=== PATIENT | female | born 1965 | race Caucasian/White ===

== ENCOUNTER → 2019-12-15 08:13 | Outpatient (CLI) | payer OTHER, SELFPAY ==
--- NOTE | ~2019-12-15 | MMUS_ITS ---
EXAMINATION: MM diag cesar implant BI w nani, US breast RT limited HISTORY: Palpable right axillary lump with pain TECHNIQUE: Additional 3-D tomosynthesis images of the breasts were performed and synthetic 2-D images were generated. CAD analysis was submitted and interpreted. High resolution right breast ultrasound was performed. COMPARISON: Comparison to multiple prior studies sequentially, with oldest reviewed study dated 06/2015. BREAST PARENCHYMAL COMPOSITION: Breast composed of scattered areas of fibroglandular density FINDINGS: MAMMOGRAPHIC FINDINGS: There are bilateral subglandular saline implants. There are no new masses, calcifications or architec tural distortion in either breast to suggest malignancy. ULTRASOUND: Right breast ultrasound: There are multiple cysts of the right breast including 5 mm cyst at 10:00, 4 cm from the nipple and a 1.5 cm cyst at 11:00, 10 cm from the nipple there is a small amount of cyst. Pericapsular fluid is n oted, likely of no clinical significance. IMPRESSION: 1. No evidence for malignancy in either breast. Benign findings. 2. Routine yearly screening mammogram and regular clinical breast examination are recommended. BI-RADS Category 2: Benign finding(s). Reviewed, dictated and finalized at location A. IMPRESSION: 1. No evidence for malignancy in either breast. Benign findings. 2. Routine yearly screening mammogram and regular clinical breast examination a re recommended. BI-RADS Category 2: Benign finding(s).
== END ==
PROVIDERS: Visit Provider Advanced Practice Midwife
DX: N63.10 Unspecified lump in the right breast, unspecified quadrant (principal)
CPT/HCPCS: 76642; 77062; 77066; G0279

== ENCOUNTER → 2020-09-04 09:57 | Outpatient (CLI) | payer OTHER, SELFPAY ==
--- NOTE | ~2020-09-04 | US_ITS ---
US axilla RT DATE: 09/04/2020 10:15 INDICATION: Right axillary lump TECHNIQUE: High-resolution ultrasound imaging and color flow imaging of the right axillary soft tissu es COMPARISON: 08/09/2018 right axilla FINDINGS: No suspicious mass or shadowing is detected. IMPRESSION: BI-RADS Category 1: Negative Reviewed, dictated and finalized at Location A. Reviewed, dictated and finalized at location A.
== END ==
PROVIDERS: Visit Provider Nurse Practitioner Family
DX: R59.1 Generalized enlarged lymph nodes (principal)
CPT/HCPCS: 76882

== ENCOUNTER 2022-11-27 07:19 | Outpatient (CLI) | payer OTHER, SELFPAY ==
--- NOTE | ~2022-11-27 | MR_ITS ---
EXAMINATION: MR brain/brain stem wo con DATE: 11/27/2022 08:16 INDICATION: Phantom smells. Frequently smells smoke. TECHNIQUE: Magnetic resonance imaging (MRI) of the brain and brainstem was performed without intraven ous contrast. COMPARISON: None. FINDINGS: There is a focus of increased T2-weighted signal intensity in the left cerebral deep white matter, which is normal as an isolated finding. There is no intracranial hemorrhage, acute infarction , or abnormal intracranial mass lesion. The ventricles are normal in size. There is a mucous retentio n cyst in right maxillary sinus. The orbits are normal. The mastoid air cells are normal. IMPRESSION: 1. Normal brain. Reviewed, dictated and finalized at location A. IMPRESSION: 1. Normal brain.
== END 2022-11-27 07:20 | disposition home or self-care (01) ==
PROVIDERS: PCP Family Medicine; Visit Provider Nurse Practitioner Family
DX: R43.9 Unspecified disturbances of smell and taste (principal)
CPT/HCPCS: 70551

== ENCOUNTER → 2022-12-25 12:03 | Outpatient (CLI) | payer OTHER, SELFPAY ==
--- NOTE | ~2022-12-25 | MM_ITS ---
EXAMINATION: MM scrn cesar implant BI w nani HISTORY: Screening mammogram TECHNIQUE: Craniocaudal and mediolateral oblique 3-D tomosynthesis images with implant displacement a nd synthetic 2-D images were generated. Craniocaudal and mediolateral oblique views of the breasts wi thout implant displacement were obtained using full field digital mammography. CAD analysis was submi tted and interpreted. COMPARISON: 12/15/2019 bilateral diagnostic implant mammogram and limited right breast ultrasound exam ination 08/09/2018 bilateral implant diagnostic mammogram BREAST PARENCHYMAL COMPOSITION: The breasts are heterogeneously dense, which may obscure small masses . FINDINGS: Status post bilateral augmentation mammoplasty. There is no evidence of suspicious mass, ca lcification, or architectural distortion to suggest malignancy in either breast. There has been no mtz spicious interval change. IMPRESSION: 1. No mammographic evidence of malignancy. 2. Recommend routine screening mammography in one year. BI-RADS Category 1: Negative Reviewed, dictated and finalized at location A.
== END ==
PROVIDERS: PCP Nurse Practitioner Family; Visit Provider Obstetrics & Gynecology
DX: Z12.31 Encounter for screening mammogram for malignant neoplasm of breast (principal)
CPT/HCPCS: 77063; 77067

== ENCOUNTER 2024-11-04 00:45 | Day surgery (SDC) | payer OTHER, SELFPAY ==
[2024-10-20 15:36] VITALS: BMI 23.4
--- OUTSIDE RECORDS SUMMARY | 2024-11-04 00:49 | XMS_ITS | Data Portability ---
Author Organization [employer] [facility] in Office Address [address] [place] [address] Assessment Encounter Date Assessment Date Assessment LastModified by Organization Details LastModified Time 02/27/2024 02/27/2024 I spent 45 minutes of tfyx-ko-ccjb counselling and care coordination time with the patient. This includes reviewing medical records (medical, surgical, family and social history); updating medication and allergy information in the electronic health record; and ordering labs, medications, and education materials to continue patient care. Not available 02/27/2024 12:55:09 04/23/2024 04/23/2024 I spent over 30 minutes of hhnl-ph-mcpa counselling and care coordination time with the patient. This includes reviewing medical records (medical, surgical, family and social history); updating medication and allergy information in the electronic health record; and ordering labs, medications, and education materials to continue patient care. Not available 04/23/2024 12:40:49 05/28/2024 05/28/2024 I spent over 22 minutes of tphu-tu-gugo counselling and care coordination time with the patient. This includes reviewing medical records (medical, surgical, family and social history); updating medication and allergy information in the electronic health record; and ordering labs, medications, and education materials to continue patient care. Not available 05/28/2024 13:27:57 08/28/2024 08/28/2024 I spent 21 minutes of wtzz-yl-laim counselling and care coordination time with the patient. This includes reviewing medical records (medical, surgical, family and social history); updating medication and allergy information in the electronic health record; and ordering labs, medications, and education materials to continue patient care. [email or web address] Not available 08/28/2024 13:29:54 09/25/2024 09/25/2024 I spent 19 minutes of jwei-bh-vdes counselling and care coordination time with the patient. This includes reviewing medical records (medical, surgical, family and social history); updating medication and allergy information in the electronic health record; and ordering labs, medications, and education materials to continue patient care. [email or web address] Not available 09/25/2024 11:30:44 Plan of Treatment Reminders Order Date Submit Date Provider Last Modified By Organization Details Last Modified Time Details Appointments [id number] 2024 06:30A Barron GUAN NP Not available Not available Not available Lab estradiol (E2), free, serum 2024 025 [facility], [address], [place], [address], 05/13/2024 21:08:13 HbA1c (hemoglob in A1c), blood 2024 025 [facility], [address], [place], [address], 05/13/2024 21:08:14 insulin, serum - fasting please 2024 025 [facility], [address], [place], [address], 05/13/2024 21:08:15 shbg (sex hormone-b inding globulin) , serum 2024 025 [facility], [address], [place], [address], 05/13/2024 21:08:22 testoster one, free, serum 2024 025 [facility], [address], [place], [address], 05/13/2024 21:08:18 testoster one, total, serum 2024 025 [facility], [address], [place], [address], 05/13/2024 21:08:16 CBC 2024 025 [facility], [address], [place], [address], 05/13/2024 21:08:11 CMP, serum or plasma 2024 025 [facility], [address], [place], [address], 05/13/2024 21:08:10 lipid panel, serum 2024 025 [facility], [address], [place], [address], 05/13/2024 21:08:12 vitamin D, 25-hydrox y, total, serum 2024 025 [facility], [address], [place], [address], 05/13/2024 21:08:17 vitamin B12, serum 2024 025 [facility], [address], [place], [address], 05/13/2024 21:08:20 ferritin, serum or plasma 2024 025 [facility], [address], [place], [address], 05/13/2024 21:08:21 unlisted lab - TSH w/reflex 2024 025 [facility], [address], [place], [address], 05/13/2024 21:08:19 Referral None recorded. Procedures None recorded. Surgeries None recorded. Imaging DEXA 2024 025 [email or web address], [address] [address], [place], [address], 10/23/2024 15:00:05 Medication Orders Divigel 1.25 mg/1.25 gram (0.1 %) transderm al gel packet 2024 [facility] [address] [place], [address], 09/25/2024 11:51:54 progester one micronize d 200 mg capsule 2024 025 [facility] [address] [place], [address], 09/25/2024 11:51:52 Bundle A: 0.25 mL/week - [facility] 2024 025 [facility] (Clinic Pay Unmonitored Fax), [address] [place] [address], [address], 09/25/2024 11:54:25 Estrace 0.01% (0.1 mg/gram) vaginal cream 2024 025 [facility] [address] [place], [address], 08/28/2024 13:45:56 Bundle A: 0.25 mL/week - [facility] 2024 025 [facility] (Clinic Pay Unmonitored Fax), [address] [place] [address], [address], 08/28/2024 13:50:11 ondansetr on 4 mg disintegr ating tablet 2024 025 [facility] [address] [place], [address], 08/28/2024 13:45:57 progester one micronize d 200 mg capsule 2024 025 [facility] [address] [place], [address], 05/28/2024 13:29:19 Divigel 1.25 mg/1.25 gram (0.1 %) transderm al gel packet 2024 025 [facility] [address] [place], [address], 05/28/2024 13:29:19 estradiol 1 mg/gram (0.1 %) transderm al gel packet 2024 025 [facility] [address] [place], [address], 05/28/2024 12:58:45 estradiol 1 mg/gram (0.1 %) transderm al gel packet [facility]23 [facility] [address] [place], [address], 05/28/2024 12:58:41 Estriol+ Face Cream ([facility]) 2023 024 [facility] *Telemedicine * [facility], [address] [place], [address], 02/27/2024 12:02:28 Patient TargetsNo targets recorded. Patient Instructions Encounter Date Encounter Id Patient Instructions Last Modified By Organization Details Last Modified Time 02/27/2024 [id number] [facility] - Estriol+ Face Cream Patient FAQ [email or web address] Not available 02/27/2024 12:01:26 Any requested follow-up visits are listed below in the Plan of Care section. Go directly to the [facility] production control scheduler at [email or web address] to book a time. [email or web address] Not available 02/26/2024 21:58:50 It was a pleasur e to meet with you today! We discussed your health concerns related to menopause, including the return of hot flashes and sleep issues. ------- Your Care Plan ------- Together, we decided that you would: - Increase your dose of estradiol gel from 0.75 milligrams to 1 gram. This medication is used to help manage your menopausal symptoms. Please warp picker your new prescription from the pharmacy. - Continue taking your current medications and supplements, including compounded testosterone, progesterone (200 milligrams daily), omegas, B12, vitamin D with K, and magnesium. - In two days, log into the [facility] website to look for your estriol face cream and an invitation to schedule an appointment with Lakshmi Pal, a nurse practitioner who can prescribe testosterone. - Keep an eye on your A1c and LDL cholesterol levels. We discussed rechecking these in a few months. - Consider contacting your insurance company to inquire about coverage for weight loss medication, given your pre-diabetic status. Please note that the estriol face cream is not covered by insurance. This cream is designed for use on thin areas of skin, such as around the eyes and on the neck. Be cautious when applying it to areas with sun damage, as it can darken sunspots. If you do not receive an invitation to schedule an appointment with Lakshmi Pal by the end of the week, please send me a note via our patient portal and I will have someone from our staff reach out to you. Please carefully review the care plan we have decided upon, specific information regarding your medication, and important details about your treatment detailed above. Thank you for trusting us with your care! Today we reviewed options for treating common symptoms of menopause. These options include hormonal medications, non hormonal medications, integrative therapies and lifestyle modifications. Menopause symptoms vary from woman to woman. Some women get no symptoms, but others have many. Intensity and duration also vary and can last on average 5-10 years. HRT may help with many menopausal symptoms. It is FDA approved for the treatment of hot flashes, vaginal symptoms, osteoporosis, and for those in early or premature menopause. HRT is associated with relief of symptoms and improvement in bone health. When started close to the age of menopause, HRT reduces cardiovascular risk and has potential benefits for cognitive health. Here are the latest recommendations from the Menopause Society: [email or web address] /patient-education/me nopause-topics/hormon e-therapy Hormone therapy most often involves the combination of estrogen and progestogen. As with any drug there are some potential risks associated with hormone therapy. There are concerns of associated health risks with HRT including risks related to breast cancer, uterine cancer, gallbladder disease, and dementia. Many of these concerns are related to older types of hormones that are no longer recommended today and some of these concerns differ depending on the component of hormones (i.e., estrogen vs progestogen) and the mode of delivery. Some studies have suggested that some types of HRT may increase the risk of heart attack, stroke, and blood clots. If you develop chest pain, difficulty breathing, or symptoms suggestive of a stroke please seek care immediately. Today we reviewed your personal history including specific risks and benefits of hormone therapy for you. Based on this shared decision making, we recommend HRT to you as a reasonable and helpful therapy. If you have additional questions related to health risks associated with HRT, please discuss with your clinician. Please know that HRT requires fine-tuning and an individualized approach. We ll plan to adjust your therapy if needed to address your symptoms. We will meet in 4-6 weeks to check in about your new regimen. Please reach out if you need to meet sooner. [email or web address] Not available 02/27/2024 12:41:34 04/23/2024 [id number] Joao Conklin w as nice to meet with you today. I placed your lab orders. Please remember to fast about 10 hours prior to completing them. Also, do not apply your testosterone for 3-4 hours prior to the lab draw. HOW TO LOCATE YOUR ORDERS IN YOUR PORTAL: Please note, lab orders are not available via a mobile device and can only be viewed via a desktop or laptop. You will be able to locate any lab orders from your [facility] clinician, by following the steps below: 1. Log into your [facility] portal via the following link: [email or web address] 2. Select My Health from the left-hand navigation menu 3. Select Health Reminders from the top menu bar 4. Here, you will be able to view all of your orders and the facilities to which they were sent All labs are sent to [facility] or your preferred facility, through their electronic system. If using [facility], then you may also go to any convenient [facility] location by searching their site ([email or web address] to find your nearest [facility] location. You do not need to bring a copy of the requisition but know that it is in your [facility] portal for reference. The lab will be able to locate your order using your name and date of , and we recommend bringing your insurance card and ID for verification and to avoid being charged usa-eh-vsgfjz rates. Schedule a followup visit through the [employer] production control scheduler at [email or web address] Not available 04/23/2024 12:44:11 Estradiol transd ermal gel (Divigel): Divigel should be applied once daily on the skin of either the right or left upper thigh (switch sides daily to avoid irritation). Spread the gel over an area the size of two palm prints. Use the full amount of each dose packet. After application, the gel should be allowed to dry before dressing. The application site should not be washed within 1 hour after applying Divigel. Use the gel at the same time each day. You can use it in the morning if daytime symptoms are most noticeable, or before bed if nighttime symptoms are most bothersome for you. Wash your hands with soap and water after applying the gel. Avoid allowing other people to get Divigel on their skin. If this happens, wash the area thoroughly with soap and water. Children should avoid coming into contact with skin areas where you have applied Divigel. Estrogen can cause premature puberty in a child who comes into contact with this medicine or with skin where Divigel was applied. Cover treated areas with clothing to protect others from coming into contact with the skin where you apply this medicine. Common side effects that usually go away after a few weeks or with a dosage adjustment: yellowish vaginal discharge, breakthrough vaginal bleeding or spotting, breast tenderness, or a little moodiness. Oral micronized progesterone (Prometrium) Continuous: -We prescribe progesterone to protect women with a uterus while taking estrogen. It may be prescribed for some individuals to help with sleep. -Remember to take this medication orally daily before bed, because it may make you drowsy. That is normal and common, and could bring the added benefit of better sleep. -Get it from your pharmacy. -Contraindications to this formulation: Peanut allergies as in peanut oil. -Concerning symptoms that would require immediate visit with PCP or urgent care: Severe mood changes. -Non-concerning side effects that are likely to resolve: cramping, bloating and mild moodiness. These are likely to ease within three months. Not available 04/23/2024 12:44:26 05/28/2024 [id number] Joao Zamorano - good to see you again. I have sent the new script for Estradiol to the pharmacy. Please let me know if you have any questions before we meet again. Schedule a followup visit through the [employer] production control scheduler at [email or web address] Not available 05/28/2024 13:29:49 Dietary recommendations to help lower cholesterol: -Try to limit red meat, butter, fried foods, cheese, and other foods that have a lot of saturated fat. -Try Green Tea Daily or a fresh slice of lemon in water -Eating more soluble fiber Soluble fiber is found in fruits, oats, barley, beans, and peas -Replacing meat with soy sometimes Soy-based products include tofu and tempeh. -Eggs are OK if you want to eat them, but don't overdo it. The news often has stories about the health benefits or risks of eggs. The truth is, eggs are a good source of protein and do not raise cholesterol much. Saturated fats (like in red meat, butter, and fried foods) affect cholesterol levels more than eggs do. -Foods rich in omega-3 fatty acids include oily fish, and olive and canola oil. These foods seem to raise good cholesterol and might lower certain types of bad cholesterol. If you want, it's fine to eat 1 to 2 servings of oily fish a week (such as salmon, gonzales, or tuna). -Nuts Some studies show that eating certain nuts, such as walnuts, almonds, and pistachios, can help lower cholesterol -Fiber-rich foods Fiber-rich foods, such as fruits, vegetables, beans, and oats, seem to lower cholesterol and are generally good for your health. Estradiol transdermal gel (Divigel): Divigel should be applied once daily on the skin of either the right or left upper thigh (switch sides daily to avoid irritation). Spread the gel over an area the size of two palm prints. Use the full amount of each dose packet. After application, the gel should be allowed to dry before dressing. The application site should not be washed within 1 hour after applying Divigel. Use the gel at the same time each day. You can use it in the morning if daytime symptoms are most noticeable, or before bed if nighttime symptoms are most bothersome for you. Wash your hands with soap and water after applying the gel. Avoid allowing other people to get Divigel on their skin. If this happens, wash the area thoroughly with soap and water. Children should avoid coming into contact with skin areas where you have applied Divigel. Estrogen can cause premature puberty in a child who comes into contact with this medicine or with skin where Divigel was applied. Cover treated areas with clothing to protect others from coming into contact with the skin where you apply this medicine. Common side effects that usually go away after a few weeks or with a dosage adjustment: yellowish vaginal discharge, breakthrough vaginal bleeding or spotting, breast tenderness, or a little moodiness. Oral micronized progesterone (Prometrium) Continuous: -We prescribe progesterone to protect women with a uterus while taking estrogen. It may be prescribed for some individuals to help with sleep. -Remember to take this medication orally daily before bed, because it may make you drowsy. That is normal and common, and could bring the added benefit of better sleep. -Get it from your pharmacy. -Contraindications to this formulation: Peanut allergies as in peanut oil. -Concerning symptoms that would require immediate visit with PCP or urgent care: Severe mood changes. -Non-concerning side effects that are likely to resolve: cramping, bloating and mild moodiness. These are likely to ease within three months. Not available 05/28/2024 13:30:30 08/28/2024 [id number] [facility] Semaglut tom Pricing Not available 08/28/2024 13:45:54 Any requested follow-up visits are listed below in the Plan of Care section. Go directly to the [employer] production control scheduler at [email or web address] to book a time. [email or web address] Not available 08/28/2024 10:30:16 It was great to see you today! As always, do not hesitate to reach out with any questions. We focused on these items today: 1. Weight 2. GSM 3. Screening for osteoporosis MEDICATION Please see changes to your medication plan below RESOURCES Here is some more information about what we discussed: It was a pleasure to meet with you today! We discussed your interest in GLP-1 microdosing, as well as general questions about your health and treatment options. Your Care Plan Together, we decided that you would: - Start GLP-1 microdosing with a semaglutide compound. The initial dose is 25 units once weekly, but you can start with a lower dose of 10-15 units if preferred. The medication will be sent from [facility] in [place], and you will receive an email from [employer] to verify your information and payment. - Be aware that the most common side effect of semaglutide is nausea. A prescription for Zofran will be sent to your pharmacy as a precaution. - Schedule a follow-up appointment in four weeks to assess your response to the GLP-1 microdosing. The appointment is scheduled for September 25 at 10:30 AM. - Undergo a DEXA scan. The order has been sent to [facility], and you will need to contact them to schedule the appointment. Please check with your insurance for coverage. - Start using Estrace vaginal cream in addition to your current estrogen gel. This will help nourish the vaginal tissue, support the microflora, and reduce urinary urgency and frequency. The prescription will be sent to your local pharmacy. Please carefully review the care plan we have agreed upon above, which includes specific information about your GLP-1 microdosing, DEXA scan, and estrogen therapy. Thank you for trusting us with your care! [facility] Compounded Semaglutide [email or web address] Here are the next steps regarding your [facility] prescription: The day after your visit you will receive an email from [employer] to purchase your medications. We recommend adding this email to your contact list to prevent it from being filtered by spam/junk filters. Please ensure you click the link in the email to confirm the products you would like. Once you have verified you would like to receive this product from that email and completed the purchase, your prescription will be processed. If you do not receive the email, you can purchase your [facility] medications in the [employer] production control scheduler at [email or web address] Once you login click on Custom RX in the left side panel, then select the items you wish to purchase. You will receive an email and text when your order ships. Please allow 5-7 business days from time of purchase to arrival of the medication. If you have any questions at any time, please reach out to us here at [facility], we are happy to help. Vaginal Estrogen Cream (Estrace vaginal cream): - This vaginal estrogen helps to restore vaginal PH and microflora, reduce dryness, and support healthy skin in and around the vagina. It may decrease irritation, pain with sex, bladder infections and symptoms of urinary urgency and frequency. - Insert 0.5 mg into the vagina and apply 0.5 mg to vulva every night at bedtime for 14 days, then twice weekly. - Get it from your pharmacy. [email or web address] Not available 08/28/2024 13:45:52 09/25/2024 [id number] [facility] Semaglut tom Pricing [email or web address] Not available 09/25/2024 11:51:48 Any requested follow-up visits are listed below in the Plan of Care section. Go directly to the [employer] production control scheduler at [email or web address] to book a time. To schedule or modify your visit, access the [employer] portal here: [email or web address] Not available 09/25/2024 11:46:28 It was great to see you again! As always, do not hesitate to reach out with any questions. We focused on these items today: 1. Menopausal symptom 2. Weight MEDICATION Please see changes to your medication plan below RESOURCES Here is some more information about what we discussed: Dear Lona, It was great to see you today! Below is a summary of the plan we decided upon together: Abnormal weight gain and semaglutide use - We decided to lower your semaglutide dose to 5 units weekly to see if this eases the diarrhea, nausea, and heartburn. - Keep ondansetron on hand but use it only if you feel truly queasy. - Track your bowel habits and weight so we can review any changes at your October follow-up. Hormone therapy - Refills for Divigel and progesterone are in; keep applying the gel daily and taking the capsule nightly. - Continue Estrace vaginal cream as previously directed to support vaginal tissue health. Osteoporosis prevention - Please call [facility] to set up your DEXA scan; bring any insurance questions to them first. - Weight-bearing exercise and good calcium/vitamin D intake remain wilkerson for bone strength. NAD injections - We will have an NAD option through the clinic soon; I will alert you when it is ready so everything stays in one place. - For now, keep your current NAD routine and do not mix it in the same syringe with semaglutide. If you have any questions or experience any new symptoms, please do not hesitate to reach out to our office. Sincerely, CAMERON GUAN NP [email or web address] Not available 09/25/2024 11:46:28 Reason for Referral None Reported. Results Created Date Observation Date Name Description Value Unit Range Abnormal Flag Note LastModifiedBy Organization Detail LastModifiedTime 04/30/1905/01/2024 COMP. METAB OLIC PANEL (14) glucose 76 mg/dL 70-99 normal Not Available [facility] [facility]) [address] [place], [address], 05/13/2024 21:08:10 04/30/19 25 05/01/2024 COMP. METAB OLIC PANEL (14) BUN 18 mg/dL 6-24 normal Not Available [facility] ([facility]) [address] [place], [address], 05/13/2024 21:08:10 04/30/19 25 05/01/2024 COMP. METAB OLIC PANEL (14) creatinine 0.84 mg/dL 0.57-1 .00 normal Not Available [facility] ([facility]) [address] [place], [address], 05/13/2024 21:08:10 04/30/19 25 05/01/2024 COMP. METAB OLIC PANEL (14) eGFR 82 mL/mi n/1.7 3 >59 normal Not Available [facility] ([facility]) [address] [facility] [place], [address], 05/13/2024 21:08:10 04/30/19 25 05/01/2024 COMP. METAB OLIC PANEL (14) BUN/creatini ne ratio 21 9-23 normal Not Available [facility] ([facility]) [address] [place], [address], 05/13/2024 21:08:10 04/30/19 25 05/01/2024 COMP. METAB OLIC PANEL (14) sodium 141 mmol/ L 134-14 4 normal Not Available [facility] ([facility]) [address] [place], [address], 05/13/2024 21:08:10 04/30/19 25 05/01/2024 COMP. METAB OLIC PANEL (14) potassium 4.6 mmol/ L 3.5-5. 2 normal Not Available [facility] ([facility]) [address] [place], [address], 05/13/2024 21:08:10 04/30/19 25 05/01/2024 COMP. METAB OLIC PANEL (14) chloride 106 mmol/ L 96-106 normal Not Available [facility] ([facility]) [address] [facility] [place], [address], 05/13/2024 21:08:10 04/30/19 25 05/01/2024 COMP. METAB OLIC PANEL (14) carbon dioxide, total 22 mmol/ L 20-29 normal Not Available [facility] ([facility]) [address] [facility] [place], [address], 05/13/2024 21:08:10 04/30/19 25 05/01/2024 COMP. METAB OLIC PANEL (14) calcium 9.7 mg/dL 8.7-10 .2 normal Not Available [facility] ([facility]) [address] [facility] [place], [address], 05/13/2024 21:08:10 04/30/19 25 05/01/2024 COMP. METAB OLIC PANEL (14) protein, total 6.5 g/dL 6.0-8. 5 normal Not Available [facility] ([facility]) [address] [place], [address], 05/13/2024 21:08:10 04/30/19 25 05/01/2024 COMP. METAB OLIC PANEL (14) albumin 4.3 g/dL 3.8-4. 9 normal Not Available [facility] ([facility]) [address] [place], [address], 05/13/2024 21:08:10 04/30/19 25 05/01/2024 COMP. METAB OLIC PANEL (14) globulin, total 2.2 g/dL 1.5-4. 5 Not Available [facility] ([facility]) [address] [facility] [place], [address], 05/13/2024 21:08:10 04/30/19 25 05/01/2024 COMP. METAB OLIC PANEL (14) bilirubin, total 0.6 mg/dL 0.0-1. 2 normal Not Available [facility] ([facility]) [address] [facility] [place], [address], 05/13/2024 21:08:10 04/30/19 25 05/01/2024 COMP. METAB OLIC PANEL (14) alkaline phosphatase 49 IU/L 44-121 normal Not Available [facility] ([facility]) [address] [facility] [place], [address], 05/13/2024 21:08:10 04/30/19 25 05/01/2024 COMP. METAB OLIC PANEL (14) AST (SGOT) 23 IU/L 0-40 normal Not Available [facility] ([facility]) [address] [place], [address], 05/13/2024 21:08:10 04/30/19 25 05/01/2024 COMP. METAB OLIC PANEL (14) ALT (SGPT) 13 IU/L 0-32 normal Not Available [facility] ([facility]) [address] [facility], [place], [address], 05/13/2024 21:08:10 04/30/19 25 04/30/2024 CBC, PLATE LET, NO DIFFE RENTI AL WBC 5.2 x10e3 /uL 3.4-10 .8 normal Not Available [facility] ([facility]) [address] [facility], [place], [address], 05/13/2024 21:08:11 04/30/1904/30/2024 CBC, PLATE LET, NO DIFFE RENTI AL RBC 4.51 x10e6 /uL 3.77-5 .28 normal Not Available [facility] ([facility]) [address] [facility], [place], [address], 05/13/2024 21:08:11 04/30/1904/30/2024 CBC, PLATE LET, NO DIFFE RENTI AL hemoglobin 13.5 g/dL 11.1-1 5.9 normal Not Available [facility] ([facility]) [address] [facility], [place], [address], 05/13/2024 21:08:11 04/30/1904/30/2024 CBC, PLATE LET, NO DIFFE RENTI AL hematocrit 42.4 % 34.0-4 6.6 normal Not Available [facility] ([facility]) [address] [facility], [place], [address], 05/13/2024 21:08:11 04/30/1904/30/2024 CBC, PLATE LET, NO DIFFE RENTI AL MCV 94 fL 79-97 normal Not Available [facility] ([facility]) [address] [facility], [place], [address], 05/13/2024 21:08:11 04/30/192025 CBC, PLATE LET, NO DIFFE RENTI AL MCH 29.9 pg 26.6-3 3.0 normal Not Available [facility] ([facility]) [address] [facility], [place], [address], 05/13/2024 21:08:11 04/30/19 25 04/30/2024 CBC, PLATE LET, NO DIFFE RENTI AL MCHC 31.8 g/dL 31.5-3 5.7 normal Not Available [facility] ([facility]) [address] [place], [address], 05/13/2024 21:08:11 04/30/1904/30/2024 CBC, PLATE LET, NO DIFFE RENTI AL RDW 11.8 % 11.7-1 5.4 Not Available [facility] ([facility]) [address] [place], [address], 05/13/2024 21:08:11 04/30/19 25 04/30/2024 CBC, PLATE LET, NO DIFFE RENTI AL platelets 231 x10e3 /uL 150-45 0 normal Not Available [facility] ([facility]) [address] [facility], [place], [address], 05/13/2024 21:08:11 04/30/19 25 04/30/2024 CBC, PLATE LET, NO DIFFE RENTI AL NRBC RADIATION THERAPY TECHNOLOGIST Not Available [facility] ([facility]) [address] [place], [address], 05/13/2024 21:08:11 04/30/19 25 05/01/2024 LIPID PANEL cholesterol, total 220 mg/dL 100-19 9 above high normal Not Available [facility] ([facility]) [address] [place], [address], 05/13/2024 21:08:12 04/30/19 25 05/01/2024 LIPID PANEL triglyceride s 58 mg/dL 0-149 normal Not Available [facility] ([facility]) [address] [facility], [place], [address], 05/13/2024 21:08:12 04/30/19 25 05/01/2024 LIPID PANEL HDL cholesterol 69 mg/dL >39 normal Not Available [facility] ([facility]) [address] [place], [address], 05/13/2024 21:08:12 04/30/19 25 05/01/2024 LIPID PANEL VLDL cholesterol mahesh 10 mg/dL 5-40 Not Available [facility] ([facility]) [address] [place], [address], 05/13/2024 21:08:12 04/30/1905/01/2024 LIPID PANEL LDL chol calc ([facility]) 141 mg/dL 0-99 above high normal Not Available [facility] ([facility]) [address] [facility], [place], [address], 05/13/2024 21:08:12 04/30/1905/01/2024 LIPID PANEL LDL calc comment: RADIATION THERAPY TECHNOLOGIST Not Available [facility] ([facility]) [address] [facility], [place], [address], 05/13/2024 21:08:12 04/30/19 25 05/12/2024 ESTRA DIOL, FREE SERUM estradiol, serum, MS 22 pg/mL This test was milvia peñaloza and its perfo rmanc e teresa cteri stics deter mined by [facility]. It has not been clear ed or appro rolan by the Food and Drug Admin istra tion. Refer ence Range : Adult Femal es Folli cular : 30 - 100 Lutea l: 70 - 300 Postm enopa usal: <15 Not Available [facility] [address] [place] [address], [address], 05/13/2024 21:08:13 04/30/19 25 05/13/2024 ESTRA DIOL, FREE SERUM free estradiol, percent 2.0 % This test was milvia peñaloza and its perfo rmanc e teresa cteri stics deter mined by [facility]. It has not been clear ed or appro rolan by the Food and Drug Admin istra tion. Refer ence Range : Adult Femal es: 1.6 - 3.6 Not Available [facility] [address] [place], [address], 05/13/2024 21:08:13 04/30/19 25 05/13/2024 ESTRA DIOL, FREE SERUM free estradiol, serum 0.44 pg/mL below low normal Refer ence Range : Adult Femal es: 0.6 - 7.1 Not Available [facility] [address] [place], [address], 05/13/2024 21:08:13 04/30/19 25 05/01/2024 HGB A1C WITH EAG ESTIM ATION hemoglobin A1C 5.6 % 4.8-5. 6 normal Predi abete s: 5.7 - 6.4 Diabe salomón: >6.4 Glyce sumeet contr ol for adult s with diabe salomón: <7.0 Not Available [facility] ([facility]) [address] [place], [address], 05/13/2024 21:08:14 04/30/19 25 05/01/2024 HGB A1C WITH EAG ESTIM ATION estim. avg glu (EAG) 114 mg/dL Not Available [facility] ([facility]) [address] [place], [address], 05/13/2024 21:08:14 04/30/19 25 05/07/2024 INSUL IN #9 insulin #9 1.5 uIU/m L 2298 Not Available [facility] [address] [place], [address], 05/13/2024 21:08:15 04/30/19 25 05/01/2024 TESTO STERO NE testosterone 195 NG/dL 4-50 above high normal Not Available [facility] ([facility]) [address] [facility], [place], [address], 05/13/2024 21:08:16 04/30/19 25 05/01/2024 VITAM IN D, 25-HY DROXY vitamin D, 25-hydroxy 58.8 NG/mL 30.0-1 00.0 Vitam in D defic iency has been defin ed by the Insti tute of Medic ine and an Endoc rine Socie ty pract ice guide line as a level of serum 25-OH vitam in D less than 20 ng/mL (1,2) . The Endoc rine Socie ty went on to furth er defin e vitam in D insuf ficie ncy as a level betwe en 21 and 29 ng/mL (2). 1. IOM (Inst itute of Medic ine). 2010. Sean ry refer ence natalia es for calci um and D. Paulino guillen [place]: The [facility] Press . 2. Ludin castellano MF, Chad ey [place], Esther off-F errar i MEI, et al. Evalu ation , treat ment, and preve ntion of vitam in D defic iency : an Endoc rine Socie ty clini mahesh pract ice guide line. JCEM. 2010; 96(7) :1911 -30. Not Available [facility] ([facility]) [address] [facility], [place], [address], 05/13/2024 21:08:17 04/30/19 25 05/03/2024 TESTO STERO NE, FREE, DIREC T free testosterone (direct) 1.3 pg/mL 0.0-4. 2 Not Available [facility] ([facility]) [address] [place], [address], 05/13/2024 21:08:18 04/30/19 25 05/01/2024 TSH W/REF JC TSH 2.510 uIU/m L 0.450- 4.500 normal Not Available [facility] ([facility]) [address] [facility], [place], [address], 05/13/2024 21:08:19 04/30/19 25 05/01/2024 VITAM IN B12 vitamin B12 664 pg/mL 232-12 45 normal Not Available [facility] ([facility]) [address] [facility], [place], [address], 05/13/2024 21:08:20 04/30/19 25 05/01/2024 APRIL TIN ferritin 43 NG/mL 15-150 normal Not Available [facility] ([facility]) [address] [facility], [place], [address], 05/13/2024 21:08:21 04/30/19 25 05/01/2024 SEX HORM RUBY NG GLOB, SERUM sex horm binding glob, serum 102.0 nmol/ L 17.3-1 25.0 Not Available [facility] ([facility]) [address] [facility], [place], [address], 05/13/2024 21:08:22 Result Notes None recorded. Problems Name Problem SNOMED Code Status Onset Date Resolution Date Notes Provider Name and Address Organization Details Recorded Time Menopausal symptom 13696395 Active 2023 [place] [address] [place], [address], [facility] 4 22:00:19 Fatigue 83076850 Active 2023 Violette [place] [address], [address], [facility] 4 22:00:19 Hyperlipide stanton 65682877 Active 2023 Violette [place] [address], [address], [facility] 4 11:42:33 Intrinsic aging of skin 139903715 Active 2023 [place] [address] [place], [address], [facility] 4 11:48:30 Abnormal weight gain 107124654 Active 2023 [place] [address] [place], [address], [facility] 5 22:16:44 Hyperglycem ia 42246534 Active 2023 [place] [address] [address] [place] [address], [facility] 4 12:54:34 Prediabetes 508263693 Active 2024 [place] [address] [address] [place] [address], [facility] 5 12:41:42 Reduced libido 2007253 Active 2024 [place] [address] [address] [place] [address], [facility] 5 12:42:44 Premature menopause 844463063 Active 2024 [place] [address] [place] [address], [facility] 5 13:22:18 Genitourina ry syndrome of menopause 6434368933805 9104 Active 2024 [place] [address] [place] [address], [facility] 5 13:26:24 Problem Notes None recorded. Procedures Surgical History Date Name Laterality Status Provider Name and Address Organization Details Recorded Time 3 Date of Last [place] [address] [address] [place] [id number], [facility] 02/27/2024 11:32:48 3 Date of Last [place] [address] [address] [facility] , [facility] 02/27/2024 11:32:48 Imaging Results None recorded. Procedure Notes None recorded. Medical Equipment None Reported. Allergies No known drug allergies Medications Name Sig Start Date Stop Date Status Note LastModified by Organization Details LastModified Time Estriol+ Face Cream ([facility]) Apply 1 gram (equival ent to 1 pump) directly to face and neck twice daily. 2023 active Not Available Not Available Not Avai lable Bundle A: 0.25 mL/week - [facility] Inject 25 units (0.25mg) subcutan eously once weekly. 2024 active Not Available Not Available Not Avai lable Bundle A: 0.25 mL/week - [facility] Inject 25 units (0.25mg) subcutan eously once weekly. 2024 active Not Available Not Available Not Avai lable cyclobenza iram 10 mg tablet 10 MG ORALLY THREE TIMES A DAY NEEDED FOR MUSCLE SPASM active Not Available Not Available No t Available azithromyc in 250 mg tablet TAKE 2 TABLETS BY MOUTH TODAY, THEN TAKE 1 TABLET DAILY FOR 4 DAYS DIRECTED active Not Available Not Available No t Available progestero ne micronized 200 mg capsule TAKE 1 CAPSULE BY MOUTH EVERY DAY FOR 90 DAYS active Not Available Not Available No t Available estradiol 0.01% (0.1 mg/gram) vaginal cream APPLY TO VULVA AND VAGINA 1 GM NIGHTLY FOR 2 WEEKS THEN REDUCE TO 2-3 TIMES PER WEEK THEREAFT ER. active Not Available Not Available No t Available ondansetro n 4 mg disintegra ting tablet Place 2 tablets twice a day by translin gual route for 15 days. 2024 active Not Available Not Available Not Avai lable estradiol 0.75 mg/1.25 gram (0.06%) transderma l gel Apply by transder mal route. 04/23 completed Not Available Not Available Not Available testostero ne active 5% 2 clicks bilat daily Not Available Not Available Not Available estradiol 1 mg/gram (0.1 %) transderma l gel packet Apply 1 packet every day by transder mal route for 30 days. 05/28 completed Not Available Not Available Not Available estradiol 0.75 mg/0.75 gram (0.1%) transderma l gel packet APPLY 1 PACKET BY TRANSDER MAL ROUTE EVERY DAY 04/23 completed Not Available Not Available Not Available estradiol 1.25 mg/1.25 gram (0.1 %) transderma l gel packet APPLY 1 PACKET EVERY DAY BY TRANSDER MAL ROUTE FOR 90 DAYS. active Not Available Not Available No t Available Vitals Date Recorded Body height Body mass index (BMI) Body weight Provider Name and Address Organization Details Last Updated DateTime 09/25/2024 162.56 cm 24 kg/m2 [address].[place] [address] [facility] [address] 09/25/2024 11:35:58 Date Recorded Body height Body mass index (BMI) Body weight Provider Name and Address Organization Details Last Updated DateTime 02/27/2024 162.56 cm 23.7 kg/m2 6[address].75 [place] [address] [facility] [address] 02/27/2024 11:40:23 Social History None recorded. Functional Status None recorded. Mental Status None recorded. Family History Relationship Description Onset Age of this Age Resolved Age Notes LastModified by Organization Details LastModified Time Father Malignant tumor of colon [email or web address] Not available 2023 22:03:01 Sister Type 1 diabetes mellitus [email or web address] Not available 2024 12:28:42 Medical History No medical history recorded. Gynecological History Statement/Question Response Date of Last Pap Smear 10/07/2022 Date of Last Colonoscopy Date of Last Mammogram 10/07/2022 Approximate Date of LMP 10/07/2006 Hormone Replacement Therapy Yes Obstetrics History GPAL:G 0 P 0 0 0 0 Past Encounters Encounter ID Performer Location Encounter Start Date Encounter Closed Date Diagnosis/Indication Diagnosis SNOMED-CT Code Diagnosis ICD10 Code Diagnosis Note [id number] Violette Marcelino NP Main Office [address] [place] [address] 02/27/2024 10:35:51 03/01/2024 10:58:03 Menopausal symptom 84776248 N95.1 - Patient experienci ng recurrence of hot flashes and insomnia.- Current estradiol gel dose is 0.75 mg, which appears insufficie nt.- Increased estradiol gel dose to 1 gram daily.- Educated patient on the potential for further dose adjustment s if symptoms persist.- Referred to Leona Pal NP, for management of testostero ne therapy due to current [employer] licensing issues.- Patient to follow up with [facility] clinician for [facility] rx in [place] for further hormone management and potential lab work.- Patient advised to monitor symptoms and report any changes. Fatigue 73398277 R53.83 - Chronic fatigue with a history of positive Yisel-Ba rr virus (EBV) indicating possible chronic fatigue syndrome.- No current exacerbati on noted.- Patient educated on the importance of maintainin g a balanced diet, regular exercise, and adequate sleep.- No new treatment initiated at this time. Intrinsic aging of skin 946164145 L90.8 - Patient interested in estriol face cream for skin aging.- Ordered estriol face cream from [place].- Educated patient on applicatio n: use on thin areas of skin such as around the eyes, neck, and back of hands.- Advised to avoid areas with sun damage to prevent darkening of sunspots.- Patient to log in to the [facility] website in 2 days to confirm order and provide shipping informatio n. Hyperlipidemia 50465921 E78.5 - Last LDL level was 151 mg/dL, which is elevated.- Patient advised to recheck lipid panel in a few months.- Educated on the impact of menopause on lipid levels and the importance of diet and exercise.- Discussed potential benefits of semaglutid e for metabolic health and A1c reduction. - Patient to contact insurance regarding coverage for weight loss medication s.- Will follow up with Lakshmi Pal for further management and potential initiation of semaglutid e therapy. Hyperglycemia 26258345 R 73.9 a1c elevated, new finding for patient. monitor. consider low dosing semaglutid e Abnormal weight gain 161 415228 R63.5 15 pound gain since age 52. is considerin g semaglutid e use [id number] Evelyne Pal NP Main Office [address] [place] [address] 04/23/2024 11:54:38 04/24/2024 11:17:00 Menopausal symptom 89308032 N95.1 Will continue on Estradiol 1mg gel packets & 200mg nightly prometrium - has enough prometrium but refills of estradiol sentLabs orderedRem maday to update mammoF/u scheduled to review lab results Adult heal th examination 181464601 Z00.00 Fasting labs ordered Prediabetes 763590146 R7 3.03 Await lab resultsMay consider microdosin g semaglutid e - see HPI Fatigue 87571059 R53.83 Labs ordered Reduced libido 9488440 R 68.82 Ran labs - currently on compounded testostero ne with outside provider [id number] Evelyne Pal NP Main Office [address] [place] [address] 05/28/2024 12:06:58 05/30/2024 04:27:40 Reduced libido 4257991 R68.82 Plans to continue testostero ne cream w/ outside provider Menopausal symptom 70660 002 N95.1 Discussed Estradiol results & pt's current symptoms - would like to try a slightly higher dose. Aware of risks/bene fits/use. RX sentF/u appt made Diet education 78033804 Z71.3 Briefly discussed cholestero l - thinks it may be genetic but will work on dietInfo given [id number] CAMERON GUAN NP Main Office [address] [place] [address] 08/28/2024 12:36:38 08/29/2024 05:41:59 Abnormal weight gain 856931604 R63.5 - Discussed semaglutid e compound (25 units once weekly), with option to use 10 20 units subcutaneo usly based on tolerance, for mild appetite suppressio n and metabolic support.- Prescribed ondansetro n for potential nausea, instructed that it is optional if no gastrointe stinal side effects occur.- Advised to follow up in 4 weeks to evaluate efficacy, dosage tolerance, and any side effects. Screening for osteoporosis 293063694 Z13.820 - Ordered DEXA scan at [facility].- Instructed patient to contact insurance provider for coverage details and schedule the imaging directly with [facility].- Will review results upon completion . Genitourin ivelisse syndrome of menopause 4535084474 5503029 N95.8 - Patient is currently receiving systemic estrogen via transderma l gel.- Prescribed local vaginal estrogen (Estrace vaginal cream) to support vaginal tissue health and reduce genitourin ivelisse symptoms.- Educated on applicatio n technique and potential benefits; prescripti on sent to local pharmacy. [id number] CAMERON GUAN NP Main Office [address] [place] [address] 09/25/2024 10:47:30 09/26/2024 04:31:29 Menopausal symptom 67755718 N95.1 - Refilled Divigel estradiol 1.25 mg packets daily and progestero ne 200 mg nightly; confirmed continued Estrace vaginal cream supply- Medication s supplement s: Divigel estradiol 1.25 mg transderma l daily; progestero ne 200 mg orally nightly; Estrace vaginal cream per current regimen Abnormal weight gain 161 309414 R63.5 - Diagnosis: Abnormal weight gain- Assessment : Semaglutid e micro-dose producing desired metabolic effect but causing gastrointe stinal side effects- Plan: Reviewed risks and benefits of therapy; advised reducing semaglutid e to 5 units weekly to improve tolerance- Medication s supplement s: Adjust semaglutid e to 5 units weekly; ondansetro n 4 mg ODT available prn nausea- Lifestyle measures: Maintain hydration and track bowel patterns and weight- Follow up: Telehealth visit scheduled 10 29 2024 at 08:15 AM Counseling 719231860 Z71 .9 - Diagnosis: Counseling , unspecifie d - Assessment : Discussion regarding NAD injection use and future availabili ty through clinic - Plan: Will notify patient when NAD formulatio n is available next month; instructed to use portal messaging for questions - Follow up: As needed via portal; reassess at next scheduled visit Health Concerns Section Related Observation LastModified by Organization Detai ls LastModified Time None Recorded Concern Status LastModified by Organization Details LastModified Time None Recorded Advance Directives Directive None Recorded Payers Insurance Date Sequence Insurance Name Policy Number Policy Li Covered Member ID Li Member ID Guarantor Name 09/28/2024 1 [employer] (POS II) [id number] Lona Weller [id number] Lona Weller Notes Date Note Type Note Provider Name and Address Organization Details Recorded Time 02/27/2024 text/html Virtual Visit AttestationModality: VideoProvider Location: Home Patient Location: Home Patient State: [place][ ]I have obtained consent from the patient for use of autoscribe.58 yo female -- has been using hormone therapy of this rx x year. used to an estrogen combined up to last year.Has recently has had a return of symptoms including a return of hot flashes and sleep disturbances.Had a mirena IUD so did not have a period for many years.Menopausal symptoms started at age 52.Reports a long history of fatigue -- was told she had mono -- a positive yisel tanner. Father dx with colon ca remote dx -- parents were heavy smokersLast screening labs in 11/2023 TC 230 LDL 151 reports her bp runs low A1C 5.8Has gained 10 to 15 pounds in the last six years. interested in semaglutide for a1c lowering. Violette Marcelino, NATALI [address] [facility], [place], [address], [facility] - [facility] 02/27/2024 12:56:54 04/23/2024 text/html 58 y/o F present s to [facility] for a follow up visit - first visit with this provider.VISIT HX:02/27/24 - given Estradiol 1mg transdermal gel packets & Estriol Face Cream.Today's visit - Here to discuss use of testosterone - currently using from an outside provider.Currently using compounding testosterone with a local compounding pharmacy. On Testosterone for a while - uses 2 clicks daily ~ unsure if dose of testosterone in each click. Feels good with her testosterone - was wondering if we did injectable testosterone. After explaining that we did not, she would like to get a full set of labs including testosterone labs done but will likely continue testosterone use with her local compounding pharmacy.Requests full routine blood panel - family hx of DM and she reports pre-diabetes with last HgbA1C level. Interested in possibly microdosing semaglutide for health benefits/preventative care.Does not feel any different on Estradiol 1mg vs the 0.075mg. Continues to experience fatigue but wonders if it is unrelated to the Estrogen levels. Would like an estradiol run.LMP HX:LMP 2006Hx of Mirena IUS use - reports menopausal symptoms started around 52 y/o.OB HX: G0Pt's concerns listed in priority order:1. Weight gain - 15 lbs since 52 y/o.2. Fatigue Health Maintenance Screening:Last Pap: 09/2022 WNLLast Mammo: 09/2022 WNLLast Colonoscopy: 12/2023- cologuard neg.Last Dexa: Unknown statusLast appt with PCP:Pt reported BPs: WNL per pt.BC METHOD: MenopausalMed Hx significant for:1. Hx of Yisel Harmony Virtual Visit AttestationModality: VideoProvider Location: HomePatient Location: HomePatient State: [place]ONELLE Evelyne Demarco, [place], [place], [address], [facility] - [employer] 04/23/2024 12:44:49 05/28/2024 text/html 58 y/o F present s to [facility] for a follow up visit - first visit with this provider.VISIT HX:02/27/24 - given Estradiol 1mg transdermal gel packets & Estriol Face Cream.04/23/24 - Here to discuss use of testosterone - currently using from an outside provider.Currently using compounding testosterone with a local compounding pharmacy. On Testosterone for a while - uses 2 clicks daily ~ unsure if dose of testosterone in each click. Feels good with her testosterone - was wondering if we did injectable testosterone. After explaining that we did not, she would like to get a full set of labs including testosterone labs done but will likely continue testosterone use with her local compounding pharmacy.Requests full routine blood panel - family hx of DM and she reports pre-diabetes with last HgbA1C level. Interested in possibly microdosing semaglutide for health benefits/preventative care.Does not feel any different on Estradiol 1mg vs the 0.75mg. Continues to experience fatigue but wonders if it is unrelated to the Estrogen levels. Would like an estradiol run->Labs ordered.Today's visit - LMP HX:LMP 2006Hx of Mirena IUS use - reports menopausal symptoms started around 52 y/o.OB HX: G0 LAB HX:04/30/24:Ferritin: 43Vitamin B12: 664TSH: 2.51Vitamin D: 58.8Insulin: 1.9KfoS5M: 5.6Lipids: Total 220, LDL 141, otherwise WNL.CBC: WNLCMP: WNLSHBFree Testosterone: 1.3Total Testosterone: 195Estradiol: 22Pt's concerns listed in priority order:1. Weight gain - 15 lbs since 52 y/o.2. Fatigue Health Maintenance Screening:Last Pap: 09/2022 WNLLast Mammo: 09/2022 WNLLast Colonoscopy: 12/2023- cologuard neg.Last Dexa: Unknown statusLast appt with PCP:Pt reported BPs: WNL per pt.BC METHOD: MenopausalMed Hx significant for:1. Hx of Yisel Harmony Virtual Visit AttestationModality: VideoProvider Location: HomePatient Location: HomePatient State: [place] [address] [place], [address], [facility] 05/28/2024 13:31:26 08/28/2024 text/html The patient is a 58-year-old female presenting for a consultation on GLP-1 microdosing and general health inquiries. GLP-1 Microdosing Inquiry- Interested in GLP-1 microdosing for overall health benefits, not specifically for weight loss.- Reports a family history of type 1 diabetes.- Recent HbA1c was 5.7%, which she found surprising. NAD Supplementation- Currently taking NAD supplement; inquires if it curbs appetite. Hormone Replacement Therapy- Currently using an estrogen gel applied to the inner thigh.- Inquires about the benefits of adding a vaginal estrogen cream for future protection against atrophy. DEXA Scan Inquiry- Inquires about scheduling a DEXA scan. Virtual Visit AttestationModality: VideoProvider Location: Home Patient Location: Home Patient State: [place] [address] [place], [address], [facility] 08/30/2024 13:28:30 09/25/2024 text/html Virtual Visit AttestationModality: VideoProvider Location: Home Patient Location: Home Patient State: [place] Chief complaint: Semaglutide side effects including diarrhea and mild nausea. 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 Semaglutide side effects - Initiated semaglutide 10 units subcutaneously once weekly 4 weeks ago for metabolic support, not weight loss - Reports daily loose stools that began soon after the first dose, contrasting with sister s constipation on the same medication - Notes intermittent mild nausea but has not needed ondansetron; occasional brief heartburn though she rarely experienced this previously - Current weight roughly 140 lb at a recent office visit, previously documented 138 lb - Wonders if dosage reduction might alleviate gastrointestinal symptoms Hormone replacement therapy refills - Using Divigel packets applied to thigh; on final box and requests refill - Continues Estrace 0.01 percent vaginal cream with adequate supply - Takes progesterone 200 mg capsule nightly for endometrial protection NAD injection inquiry - Self-injects NAD at a [id number] dose and asked whether it can be drawn into the same syringe as semaglutide to reduce injections, advised not to - Interested in obtaining NAD through clinic once available Current medications: - Semaglutide 10 units subcutaneously once weekly - Divigel estradiol 1.25 mg transdermal gel applied once daily - Progesterone 200 mg orally nightly - Estradiol 0.01 percent vaginal cream 1 g nightly for 2 weeks then twice weekly as needed - Ondansetron 4 mg orally disintegrating tablet as needed for nausea (not used) - NAD injectable supplement, low self-titrated dose (exact dose not specified) [place] [address] [place], [address], [facility] 09/25/2024 11:52:07 OBGyn Episode No OBEpisode recorded.
--- OUTSIDE RECORDS SUMMARY | 2024-11-04 00:49 | XMS_ITS | Data Portability ---
Author Organization [facility] [place] Address [address] [place] [address] Care Team Providers Care Level Vial Marker Name Role Phone RAMEZ HUBER Primary Care Provider [phone] Assessment Encounter Date Assessment Date Assessment LastModified by Organization Details LastModified Time 02/25/2021 02/25/2021 Annual gynecological exam performed. Patient will come back in a year unless there are new symptoms. Not available 02/25/2021 10:17:17 04/03/2022 04/03/2022 Annual gynecological exam performed. Patient will come back in a year unless there are new symptoms. [email or web address] Not available 04/03/2022 12:58:25 10/02/2022 10/02/2022 needs mammogram reji. will not give more than a few mos without UTD mammo. pt aware. discussed different HRT options. pt wants to try estring. scripts for estring and prometrium sent. will refill estring until [facility] in [place] once mammo done and normal. [email or web address] Not available 10/02/2022 12:04:16 04/23/2023 04/23/2023 Annual gynecological exam performed. Patient will come back in a year unless there are new symptoms. [email or web address] Not available 04/23/2023 10:13:06 Plan of Treatment Reminders Order Date Submit Date Provider Last Modified By Organization Details Last Modified Time Details Appointments None recorded. Lab None recorded. Referral None recorded. Procedures None recorded. Surgeries None recorded. Imaging US, axilla - right 2023 024 [facility], [address], [address] [address], [place], [address], 4 05:01:05 Medication Orders progesteron e micronized 200 mg capsule 2023 024 [facility]armacy #[id number], [address] [place], [address], 4 14:05:31 progesteron e micronized 200 mg capsule 2023 024 [facility] #3259, [address] [place], [address], 4 09:46:46 Estring 2 mg (7.5 mcg/24 hour) vaginal ring 2022 023 [email or web address] [facility]/Pharmacy #3259, [address] [place] [address], [address], 4 10:14:50 Prometrium 200 mg capsule 2022 023 [facility]/Pharmacy #3259, [address] [place], [address], 3 11:29:47 Premarin 0.625 mg/gram vaginal cream 2020 021 [facility]armacy #3259, [address] [place], [address], 1 10:09:36 estradiol 0.5 mg tablet 2020 021 [email or web address] [facility]/Pharmacy #3259, [address] [place], [address], 2 13:13:27 Prometrium 100 mg capsule 2020 021 [email or web address] [facility]/Pharmacy #3259, [address] [place], [address], 3 10:53:27 Patient TargetsNo targets recorded. Patient InstructionsNo instructions recorded. Reason for Referral None Reported. 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 Elect danny leon lucrecia d by Marisol Laws ret, CT on 03/04 at 12:47 PM ----- ----- ----- ----- ----- ----- ----- ----- ----- ----- ----- ----- ----- ----- ----- ----- ----- ---- HPV RESUL TS: HPV mRNA E6/E7 : No HPV mRNA Detec jeanie NOTE: This high risk HPV mRNA assay detec ts fourt een high- risk HPV types (16, 18, 31, 33, 35, 39, 45, 51, 52, 56, 58, 59, 66, 68) witho ut diffe renti ation . COMME NT: Note: This speci men was revie wed by a Cytot echno logis t and/o r Patho logis t (as indic ated in this repor t) after evalu ation using the Thinp rep Imagi ng Syste m. CLINI MAHESH INFOR MATIO N: Menst rual Statu s: LMP (if appli cable ): Clini mahesh Histo ry/Pr eviou s Pap: Type of Neopl javi (if appli cable ): Signi fican t Clini mahesh Findi ngs: Other Histo ry: Hormo zac (if appli cable ): PAP EDUCA AGUSTINA L NOTE: The Pap Test is a scree jevon test with an inher ent false negat skylar rate. Liqui d-bas e sampl ing may decre ase, but will not elimi giovani, false negat skylar resul ts. A negat skylar resul t does not precl ude the prese nce and/o r devel opmen t of disea se, since the prese nce of abnor mal cells in the sampl e depen ds on the locat ion of the lesio n and sampl ing techn ique. Yeimi nued regul ar scree jevon is the best metho d of cance r preve ntion . If repor jeanie cytol ogic findi ng do not corre late with physi mahesh and/o r histo rical findi ngs, furth er inves tigat ion is recom luciana d, as clini enrique martel nted. Not Available [facility] (Lab) [address] [facility], [place], [address], 03/04/2021 13:49:46 04/23/19 24 04/23/2023 IMAGE GUIDE D PAP AND HPV REGAR DLESS image guided Pap, HPV regardless of Pap result SEE RESULT S BELOW CASE REPOR T: Cytol ogy Gynec ologi mahesh Repor t Case: [id number] Autho risami g Provi franky: Elena Pope, NATALI Colle cted: 04/23 1712 Order ing Locat ion: [place] [facility] [place] Recei rolan: 04/24 0616 First Scree n: Callie an, Lucie Rescr een: Nacha mpass ak, Sivil ay, CT Speci men: Scree jevon Pap - Image d, Cervi x STATE MENT OF ADEQU ACY: Satis facto ry for evalu ation Trans forma tion zone compo nent absen t The absen ce of an endoc ervic al compo nent was confi rmed by an addit chasity li. FINAL DIAGN OSIS: Negat skylar for Intra epith elial Lesio n or Ericarash damien (NIL) . Elect danny leon lucrecia d by Wilfredo schmidt, Frances pitts, CT on 2023 at 5:03 PM ----- ----- ----- ----- ----- ----- ----- ----- ----- ----- ----- ----- ----- ----- ----- ----- ----- ---- HPV RESUL TS: HPV mRNA E6/E7 : No HPV mRNA Detec jeanie NOTE: This high risk HPV mRNA assay detec ts fourt een high- risk HPV types (16, 18, 31, 33, 35, 39, 45, 51, 52, 56, 58, 59, 66, 68) witho ut diffe renti ation . COMME NT: This speci men was revie wed by a Cytot echno logis t and/o r Patho logis t (as indic ated in this repor t) after evalu ation using the Thinp rep Imagi ng Syste m. CLINI MAHESH INFOR MATIO N: Menst rual Statu s: LMP (if appli cable ): Clini mahesh Histo ry/Pr eviou s Pap: Type of Neopl javi (if appli cable ): Signi fican t Clini mahesh Findi ngs: Other Histo ry: Hormo zac (if appli cable ): PAP EDUCA AGUSTINA L NOTE: The Pap Test is a scree jevon test with an inher ent false negat skylar rate. Liqui d-bas ed sampl ing may decre ase, but will not elimi giovani, false negat skylar resul ts. A negat skylar resul t does not precl ude the prese nce and/o r devel opmen t of disea se, since the prese nce of abnor mal cells in the sampl e depen ds on the locat ion of the lesio n and sampl ing techn ique. Yeimi nued regul ar scree jevon is the best metho d of cance r preve ntion . If repor jeanie cytol ogic findi ng do not corre late with physi mahesh and/o r histo rical findi ngs, furth er inves tigat ion is recom luciana d, as clini enrique martel nted. Not Available [facility] (Lab) [address], [place], [address], 04/25/2023 18:06:53 12/26/1912/25/2022 MAMMO , scree jevon, bilat eral No observ ation record ed. [facility] [address], [place], [address], 01/10/2023 10:37:20 Result Notes None recorded. Problems Name Problem SNOMED Code Status Onset Date Resolution Date Notes Provider Name and Address Organization Details Recorded Time Screenin g for malignan t neoplasm of cervix Completed 201102/25/2021 Screenin g for malignan t neoplasm s of the cervix;R ecorded Elsewher e: No Locat ion: [facility] S ource: EHR Billing Collections Specialist sabiha: N Antonio ce ID: 0001 Ojel lable Time: 01:00:00 PM [facility] 09:16:05 Menopaus al symptom [id number] Completed 201102/25/2021 Menopaus al or female climacte leonardo states;R ecorded Elsewher e: No Locat ion: [facility] S ource: EHR Billing Collections Specialist sabiha: N Practi ce ID: 0001 Joel lable Time: 01:00:00 PM [facility] 09:15:59 Speciali zed medical examinat ion Completed 201202/25/2021 Gynecolo gical Examinat ion;Aristeo rded Elsewher e: No Locat ion: [facility] S ource: EHR Billing Collections Specialist sabiha: N Practi ce ID: 0001 Joel lable Time: 01:30:00 PM Melissa Lebron [facility] 09:17:49 Adult health examinat ion Completed 201302/25/2021 ROUTINE MEDICAL EXAM;Rec orded Elsewher e: No Locat ion: [facility] S ource: EHR Billing Collections Specialist sabiha: N Practi ce ID: 0001 Joel lable Time: 08:30:00 AM Melissa Lebron [facility] 09:15:50 Removal of intraute rine device Completed 201302/25/2021 REMOVAL OF IUD;Aristeo rded Elsewher e: No Locat ion: Donavon monalisa [facility] S ource: EHR Billing Collections Specialist sabiha: N Practi ce ID: 0001 Joel lable Time: 08:30:00 AM Melissa Lebron [facility] 09:16:03 Pregnanc y test negative [id number] Completed 201402/25/2021 Encounte r for pregnanc y test, result negative ;Recorde d Elsewher e: No Locat ion: [facility]on monalisa [facility] S ource: EHR Billing Collections Specialist sabiha: N Practi ce ID: 0001 Joel lable Time: 08:30:00 AM Melissa Lebron [facility] 09:16:[address] Concept Completed 201402/25/2021 Encntr for general adult medical exam w/o abnormal findings ;Recorde d Elsewher e: No [facility] S ource: EHR Billing Collections Specialist sabiha: N Practi ce ID: 0001 Joel lable Time: 08:30:00 AM Melissa Lebron [facility] 09:17:44 Amenorrh ea [id number] Completed 201402/25/2021 Amenorrh ea;Recor ded Elsewher e: No Locat ion: [facility] S ource: EHR Billing Collections Specialist sabiha: N Practi ce ID: 0001 Joel lable Time: 08:30:00 AM Melissa Lebron [facility] 09:15:[address] Concept Completed 201402/25/2021 Well woman check w/ abnormal finding; Recorded Elsewher e: No Locat ion: [facility]nocresencio monal[facility] N Practi ce ID: 0001 Joel lable Time: 08:30:00 AM Melissa Lebron [facility] 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 09:17:47 Screenin g for malignan t neoplasm of rectum Completed 201602/25/2021 Encounte r for screenin g for malignan t neoplasm of rectum;R ecorded Elsewher e: No Locat ion: [facility]: N Deborati ce ID: 0001 Joel lable Time: 08:30:00 AM Melissa Lebron [facility] 09:17:42 Menopaus e present [id number] Completed 201702/25/2021 Symptoms such as flushing , sleeples sness, headache , lack of concentr ation, associat ed with natural (age-rel ated) menopaus e;Record ed Elsewher e: No Locat ion: [facility] monal[facility] S ource: EHR Billing Collections Specialist sabiha: N Practi ce ID: 0001 Joel lable Time: 11:30:00 AM Melissa Lebron [facility] 09:16:01 Disorder of breast 15458705 Completed 201802/25/2021 Disorder of breast, unspecif ied;Aristeo rded Elsewher e: No Locat ion: [facility] S ource: EHR Billing Collections Specialist sabiha: N Practi ce ID: 0001 Joel lable Time: 03:15:00 PM Melissa Lebron [facility] 09:15:55 Lump of axillary tail of right breast [id number] 4106 Completed 201802/25/2021 Unspecif ied lump in axillary tail of the right breast;P ractice ID: 0001 Melissa Lebron [facility] 09:15:58 Blood leukocyt e number above referenc e range [id number] Completed 201802/25/2021 Elevated white blood cell count, unspecif ied;Aristeo rded Elsewher e: No Locat ion: [facility] she[facility]on [facility] S ource: EHR Billing Collections Specialist sabiha: N Practi ce ID: 0001 Joel lable Time: 09:15:00 AM Melissa Lebron [facility] 09:15:56 Asymptom atic microsco pic hematuri a [id number] 380288 Completed 201802/25/2021 [facility];Record ed Elsewher e: No [facility] EHR Billing Collections Specialist sabiha: N Practi ce ID: 0001 Joel lable Time: 09:15:00 AM Melissa Lebron [facility] 09:15:53 Urinary tract infectio us disease [id number] Completed 201802/25/2021 Urinary tract infectio n, site not specifie d;Record ed Elsewher e: No Locat ion: Donavon monalisa [facility] S ource: EHR Billing Collections Specialist sabiha: N Practi ce ID: 0001 Joel lable Time: 09:15:00 AM Melissa Lebron [facility] 09:17:51 Problem Notes None recorded. Procedures Surgical History Date Name Laterality Status Provider Name and Address Organization Details Recorded Time 024 Date of Last Pap Smear completed [facility] 04/23/2023 10:15:13 023 Date of Last Mammogram completed [facility] 04/23/2023 10:16:[address] [facility] 12/03/2019 09:40:30 996 augmentation of bilateral breasts completed [facility] 12/03/2019 09:40:42 Imaging Results None recorded. Procedure Notes None recorded. Medical Equipment None Reported. Allergies No known drug allergies Medications Name Sig Start Date Stop Date Status Note LastModified by Organization Details LastModified Time Mirena 21 mcg/24 hr (up to 8 years) 52 mg intrauter ine device 01/13 completed Prescrib stacie Chris e: Yes Loca tion: [facility] M odify By: lv trejountjuana DateTime : 09/21/19 12 01:00:00 PM Not Available Not Available Not Available Estring 2 mg (7.5 mcg/24 hour) vaginal ring 04/23 completed Not Available Not Available Not Available estradiol 0.05 mg/24 hr weekly transderm al patch APPLY 1 PATCH BY TRANSDER MAL ROUTE EVERY WEEK 04/23 completed Not Available Not Available Not Available BD Tuberculi n Syringe 1 mL 27 x 1/2 WEEKLY INJECTIO N 09/27 completed Not Available Not Available Not Available neomycin- polymyxin -dexameth 3.5 mg/mL-10, 000 unit/mL-0 .1% eye drops INSTIL 1 DROP 4 TIMES A DAY INTO LEFT EYE FOR 4 DAYS 10/02 completed Not Available Not Available Not Available progester one micronize d 200 mg capsule TAKE 1 CAPSULE BY MOUTH EVERY DAY 2023 active Not Available Not Available Not Avai lable gabapenti n 100 mg capsule Take 2 capsules every day by oral route. 10/02 completed Not Available Not Available Not Available estradiol 0.5 mg tablet TAKE 1 TABLET BY MOUTH EVERY DAY 04/03 completed Not Available Not Available Not Available testoster one cypionate 200 mg/mL intramusc ular oil INJECT 0.07ML UNDER SKIN ONCE A WEEK 10/02 completed Not Available Not Available Not Available estradiol 0.01% (0.1 mg/gram) vaginal cream INSERT 0.5 GRAMS VAGINALL Y FOR 14 NIGHTS. THEN 2 TIMES WEEKLY FOR MAINTENA NCE. 04/03 completed Not Available Not Available Not Available Paxil 10 mg tablet take 1 tablet by oral route every day 08/01 completed Prescrib ed Elsewher e: No Locat ion: [facility] odify By: keith fajardo DateTime : 10/10/19 11:30:00 AM Not Available Not Available Not Available progester one micronize d 100 mg capsule TAKE 1 CAPSULE BY MOUTH EVERY DAY AT BEDTIME WITH FOOD 10/02 completed Not Available Not Available Not Available testoster one 1 % (50 mg/5 gram) transderm al gel packet active Not Available Not Available Not Available Bactrim DS 800 mg-160 mg tablet take 1 tablet by oral route every 12 hours 02/25 completed Prescrib ed Elsewher e: No [facility] By: alanna Gil ntjuana DateTime : 08/02/19 03:15:00 PM Not Available Not Available Not Available Vitamins and Minerals tablet 08/01 completed Prescrib ed Elsewher e: Yes [facility]oca [facility] odify By: keith fajardo DateTime : 09/21/19 01:00:00 PM Not Available Not Available Not Available NuvaRing 0.12 mg-0.015 mg/24 hr vaginal INSERT 1 RING VAGINALL Y EVERY MONTH AND LEAVE IN PLACE FOR 3 WEEKS -REMOVE FOR 1 WEEK 08/01 completed Prescrib ed Elsewher e: No Locat ion: [facility] M odify By: keith Sheldon ncountjuana DateTime : 11/13/19 12:36:14 PM Not Available Not Available Not Available azithromy coleman 500 mg tablet TAKE 1 TABLET BY MOUTH EVERY DAY FOR 5 DAYS 04/23 completed Not Available Not Available Not Available Premarin 0.625 mg/gram vaginal cream Insert 0.5gm vaginall y x 14 nights then, 2x/wk for maintena nce. 03/02 completed Not Available Not Available Not Available EstroGel 1.25 gram/actu ation (0.06%) transderm al gel pump Apply 1 pump every day by topical route. 03/01 completed Not Available Not Available Not Available magnesium active Not Available Not Rosa ilable Not Available testoster one 04/23 completed Not Available Not Available Not Available Vitamin D3 09/27 completed Not Available Not Available Not Available Vagifem 10 mcg vaginal tablet active Not Available Not Available Not Available SERVICE MECHANIC Thyroid 30 mg tablet TAKE 1 TABLET BY MOUTH DAILY ON AN EMPTY STOMACH 10/02 completed Not Available Not Available Not Available SERVICE MECHANIC Thyroid 60 mg tablet TAKE 1 1/2 TABLETS (90 MG) BY MOUTH DAILY ON AN EMPTY STOMACH 10/02 completed Not Available Not Available Not Available Testone CIK 200 mg/mL intramusc ular kit active Not Available Not Available Not Available SERVICE MECHANIC Thyroid 120 mg tablet TAKE 1 TABLET BY MOUTH EVERY DAY 04/23 completed Not Available Not Available Not Available estradiol 0.75 mg/0.75 gram (0.1%) transderm al gel packet APPLY 1 PACKET BY TRANSDER MAL ROUTE EVERY DAY 2023 active Not Available Not Available Not Avai lable Vitals Date Recorded Body height Body mass index (BMI) Body weight Systolic And Diastolic Provider Name and Address Organization Details Last Updated DateTime 04/23/2023 165.1 cm 23.6 kg/m2 02604.12 g 113/72 mm[Hg] Melanie Medrano [facility] 04/23/2023 10:13:28 Date Recorded Body height Body mass index (BMI) Body weight Systolic And Diastolic Provider Name and Address Organization Details Last Updated DateTime 09/28/2023 165.1 cm 23.6 kg/m2 10025.12 g 126/78 mm[Hg] Cherelle Borges [facility] 09/28/2023 11:52:24 Date Recorded Body height Body mass index (BMI) Body weight Systolic And Diastolic Provider Name and Address Organization Details Last Updated DateTime 10/02/2022 165.1 cm 23 kg/m2 39976.75 g 106/72 mm[Hg] Cristinacorey Morakeyona [facility] 10/02/2022 10:53:06 Date Recorded Body height Body mass index (BMI) Body weight Systolic And Diastolic Provider Name and Address Organization Details Last Updated DateTime 02/25/2021 165.1 cm 23 kg/m2 29026.75 g 111/75 mm[Hg] Melissa Lebron [facility] 02/25/2021 10:17:58 Date Recorded Body height Body mass index (BMI) Body weight Systolic And Diastolic Provider Name and Address Organization Details Last Updated DateTime 04/03/2022 165.1 cm 23.6 kg/m2 57413.12 g 98/65 mm[Hg] Melanie Medrano [facility] 04/03/2022 12:58:49 Social History Question Answer Notes LastModified by Organizat ion Details LastModified Time Tobacco Smoking Status Never Smoker [facility] 02/25/2021 10:18:10 Do You Have An Advance Directive? No Information n ot available 02/25/2021 Are You Blind Or Do You Have Difficulty Seeing? Yes Information n ot available 02/25/2021 What Is Your Level Of Caffeine Consumption? Occasional Information not available 02/25/2021 In The 14 Days Before Symptom Onset, Have You Had Close Contact With A Laboratory-confirm ed COVID-19 While That Case Was Ill? No Information n ot available 02/25/2021 In The 14 Days Before Symptom Onset, Have You Had Close Contact With A Person Who Is Under Investigation For COVID-19 While That Person Was Ill? No Information not available 02/25/2021 Have You Been To An Area Known To Be High Risk For COVID-19? No Information not available 02/25/2021 Are You Deaf Or Do You Have Serious Difficulty Hearing? No Information not available 02/25/2021 What Type Of Diet Are You Following? REGULAR Information n ot available 02/25/2021 What Is The Highest Grade Or Level Of School You Have Completed Or The Highest Degree You Have Received? [id number] Information not available 02/25/2021 Are There Any Guns Present In Your Home? No Information not available 02/25/2021 What Was The Date Of Your Most Recent Tobacco Screening? 04/23/2023 [email or web address] Information not available 04/23/2023 Do You Use Protection During Sex? No Information not available 02/25/2021 Do You Use Your Seat Belt Or Car Seat Routinely? Yes Information not available 02/25/2021 Do You Have Smoke And Carbon Monoxide Detectors In Your Home? Yes Information not available 02/25/2021 How Much Tobacco Do You Smoke? No [email or web address] Information not available 12/03/2019 Do You Use Sunscreen Routinely? No Information not available 02/25/2021 Have You Used IV Drugs? No Information not available 02/25/2021 Sex: Unknown Functional Status Question Answer Note LastModified by Organizat ion Details LastModified Time Do you use any illicit or recreational drugs? No Information not available 02/25/2021 What is your level of alcohol consumption? Occasional Information not available 12/03/2019 Do you or have you ever used smokeless tobacco? Never used smokeless tobacco Information not available 02/25/2021 Are you able to walk? 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 Information not available 02/25/2021 Do you or have you ever used e-cigarettes or vape? Never used electronic cigarettes Information not available 02/25/2021 What is your exercise level? Heavy Information not available 02/25/2021 Mental Status Question Answer Note LastModified by Organization D etails LastModified Time Do you feel stressed (tense, restless, nervous, or anxious, or unable to sleep at night)? [id number] Information not available 02/25/2021 Family History Relationship Description Onset Age of this Age Resolved Age Notes LastModified by Organization Details LastModified Time Father Malignant neoplasm of lung [email or web address] Not available 12/02 09:39:14 Mother Malignant neoplasm of lung [email or web address] Not available 12/02 09:39:14 Sister Diabetes mellitus [email or web address] Not available 12/02 09:39:20 Medical History Condition Response Allergies (Food, seasonal, environmental ) N Other Y Drug/Latex Allergies/Reactions N Blood Transfusion N Breast Cancer N Dermatologic Disorders N Lung Disease N Defects or Inherited Disease N Breast Problem Y Gestational Diabetes N Hematologic disorders N Anesthesia Complications N History of STI N Deep Vein Thrombosis N Polycystic ovary syndrome N Anxiety Disorder N Autoimmune disease N Arthritis N Polyps N Infertility N Acid Reflux (GERD) N History of abnormal pap N Cancer N Varicosities N Stroke N Neurologic/Epilepsy Y Endometriosis N High Cholesterol Y Fibromyalgia N Headaches N Kidney Disease N Heart Problems N Thyroid Problems Y Kidney or Bladder Problems N GI Problems Y Eating Disorder N Anemia N Art (IVF or FET) N Psychiatric Illness N Ovarian Cancer N Diabetes N Pulmonary (TB, Asthma) N Hepatitis/Liver Disease N No Past Medical History N Eczema N Urinary Tract Infection N Abuse/Domestic Violence N Asthma N Trauma/Violence N Depression/ depression N Heart Disease N Pre-Eclampsia N Hypertension N Osteoporosis N Thrombophilias N Gynecological History Statement/Question Response Abnormal Pap N Date of Last Mammogram 12/25/2022 Date of LMP 04/16/2017 On BCP's at Conception? N STIs/STDs N HPV Vaccine N Colposcopy 11 Current Control Method Menopause If Post Menopausal, Age at Menopause 51 Date of Last Colonoscopy Sexually Active? Y Date of DEXA bone scan Age of first menstrual cycle 13 Date of Last Pap Smear 04/23/2023 Sexual Problems? N LMP Unknown N Obstetrics History GPAL:G 0 P 0 0 0 0 Type Value Living 0 Total 0 Past Encounters Encounter ID Performer Location Encounter Start Date Encounter Closed Date Diagnosis/Indication Diagnosis SNOMED-CT Code Diagnosis ICD10 Code Diagnosis Note [id number] [facility] [address] [address] 12/03/2019 09:22:07 12/03/2019 10:01:28 Menopausal symptom 73736572 N95.1 try gabapentin for sleep due to vasomotor sxs Lump of ax illary tail of right breast [id number] 28102 N63.31 [id number] Elizabeth Awad , [facility] [address] [address] 02/25/2021 10:06:55 02/25/2021 10:59:34 Gynecologic examination 77970301 Z01.419 Take Calcium with Vitamin D 12-1500mg daily. Do monthly self breast exams. It is advised to get annual flu shot in the fall and she could obtain at [facility] or [facility] clinic. If you haven't received the Tdap vaccine in the last 10 years you should obtain one as well. Have mammogram yearly, bone density every 2-3 years and colonoscop y every 5-10 years depending on findings and history. Engage in daily exercise of low impact aerobic exercise 45-60 minutes 4-5 times weekly. Avoid tobacco and illicit drugs as well as using moderation with alcohol intake less than 1-2 8 oz beverages daily. This lifestyle behavior pattern will lead to less health conditions and longer life span. If BMI greater than 25 weight watchers or dietary consult advised. Questions have been answered. Patient appears to understand instructio ns, but if you have any further questions call or respond to this email [facility]ologua rd signedDexa -n/aPCP-lima s updated her routine labs. Will have them sent over. Menopausal flushing 1983 35732 N95.1 We discussed Menopausal Hormone therapy (MHT) for women with intact uterus with the goals of reliving vaso-motor sx's using estrogen/p rogestin therapy (EPT) using lowest doses for shortest duration in women 40-59yo. Contraindi cations include: Hx of DVT or thrombolic events, High cholestero l, Hx of breast cancer, known CHD, active liver disease, unexplaine d vag bleeding, high risk endometria l cancer, TIA. Side effects can include but are not limited to: Irregular vag bleeding,, breast tenderness , nausea, weight changes, libido changes, nausea. Adverse Rxn: Elevated BP migraine w/ visual changes, breast cancer dx, NJ/stroke, DVT/PE, Endometria l cancer. Please contact office with any new or worsening side effects or adverse reactions. Or if a medical emergency please go to nearest ED/[facility] for further evaluation . RTO x 3mos med check Dyspareunia [id number] N94 .10 Counseled on medication R/B's, Most common side effects, & use. All questions were answered to patient satisfacti on. VCG moistiruzi ng rcommended daily RTO x 3mos med check [id number] Elizabeth Awad [facility] [address] [address] 04/03/2022 12:26:11 04/03/2022 14:07:56 Gynecologic examination [id number] Z01.419 Z11.51 Take Calcium with Vitamin D 12-1500mg daily. Do monthly self breast exams. It is advised to get annual flu shot in the fall and she could obtain at [facility] or [facility] care clinic. If you haven't received the Tdap vaccine in the last 10 years you should obtain one as well. Have mammogram yearly, bone density every 2-3 years and colonoscop y every 5-10 years depending on findings and history. Engage in daily exercise of low impact aerobic exercise 45-60 minutes 4-5 times weekly. Avoid tobacco and illicit drugs as well as using moderation with alcohol intake less than 1-2 8 oz beverages daily. This lifestyle behavior pattern will lead to less health conditions and longer life span. If BMI greater than 25 weight watchers or dietary consult advised. Questions have been answered. Patient appears to understand instructio ns, but if you have any further questions call or respond to this email Pap/hpv q3yrs unless otherwise indicated per asccp (guideline s reviewed)S TD Screen declinedGe netic Screen discussedC olon Screen cologuard (2019)Dexa ScreenRout ine Labs PCP/Specia listMammoH RT Therapy-se e's a specialist for hormone replacemen t. [id number] Eula Ward MD [facility] [address] [address] 10/02/2022 10:37:34 10/03/2022 12:09:16 Hormone replacement therapy [id number] Z79.890 [id number] Elena Pope NATALI [facility] [address] [address] 04/23/2023 09:31:09 04/24/2023 12:10:08 Gynecologic examination 43945091 Z01.419 WWEpostmen opausalpap updatedSTI testing declinedma mmogram UTDcologua rd UTDroutine labs UTD/PCP Take Calcium with Vitamin D daily. Do monthly self breast exams. It is advised to get annual flu shot in the fall and she could obtain at [facility] or [facility] clinic. If you haven't received the Tdap vaccine in the last 10 years you should obtain one as well. Have mammogram yearly, bone density every 2-3 years and colonoscop y every 5-10 years depending on findings and history. Engage in daily exercise of low impact aerobic exercise 45-60 minutes 4-5 times weekly. Avoid tobacco and illicit drugs. This lifestyle behavior pattern will lead to less health conditions and longer life span. If BMI greater than 25 dietary consult advised. Questions have been answered. Patient appears to understand instructio ns, but if you have any further questions call or respond to this email Axillary lymphadenopathy [id number] R59.0 warrants updated right axillary u/s Hormone re placement therapy [id number] Z79.890 stable on current therapy and desires to continuer/ b/a reviewedor al progestero ne + topical estrogen creamwill have refills of estrogen cream sent to [facility] [id number] PAULINE Crum [facility] [address] [address] 09/28/2023 11:42:27 10/02/2023 06:00:18 Menopausal flushing [id number] N95.1 Discussed all options for management of hot flasheshor monal vs non-hormon alhormonal methods include continuing with topical creams vs switching to transderma l patchescon junior data analyst switching to divigel (topical)c ontinue progestero ne daily (she is aware of need to take daily progestero ne while on estrogen)s he is going to consider her options and let us know what she decides. R/b/a reviewed of HRT Time spent in visit is a total of 30 mins with at least 50% of visit consisting of counseling and review of plan of care. Hormone re placement therapy [id number] Z79.890 Reduced libido 4861669 R 68.82 Discussed management optionsint in compounded topical testostero ne creamr/b/a reviewed, pt agrees to these riskshe is going to consider her options, can send in rx if desired Health Concerns Section Related Observation LastModified by Organization Detai ls LastModified Time None Recorded Concern Status LastModified by Organization Details LastModified Time None Recorded Advance Directives Directive N: Payers Insurance Date Sequence Insurance Name Policy Number Policy Li Covered Member ID Li Member ID Guarantor Name 10/03/2023 1 [employer] [id number] Lona Weller [id number] Lona Weller Notes Date Note Type Note Provider Name and Address Organization Details Recorded Time 02/25/2021 text/html [employer]-MenopausalReport ed bypatient.Menopausal Symptoms:hot flashes;inadequacy of lubrication of vaginal mucosa;insomnia due to night sweats Vaginal Bleeding:history of menopause having occurred; no history of post menopausal bleeding Urinary Symptoms:no hematuria; no incontinence; no nocturia; no urinary frequency Vulva:no genital lesion; no vulvar atrophy Vagina:normal vaginal discharge; no vaginal atrophy Breast:no breast lump; no nipple discharge; no breast pain Sexual Complaints:no sexual complaints Psychological Symptoms:no depression; no anxiety Preventive Measures:encourage regular mammograms starting age 40; encourage self breast examination; encourage regular exercise; encourage no tobacco use; needs to schedule mammogram; needs to schedule colonoscopy Elizabeth Awad NATALI- [address], [place], [address], [facility] 02/25/2021 10:52:53 04/03/2022 text/html Annual [employer]-MenopausalReport ed bypatient.Menopausal Symptoms:no menopausal symptoms; normal vaginal lubrication Vaginal Bleeding:history of menopause having occurred; no history of post menopausal bleeding Urinary Symptoms:no hematuria; no incontinence; no nocturia; no urinary frequency Vulva:no genital lesion; no vulvar atrophy Vagina:normal vaginal discharge; no vaginal atrophy Breast:no breast lump; no nipple discharge; no breast pain Sexual Complaints:no sexual complaints Psychological Symptoms:no depression; no anxiety Preventive Measures:encourage regular mammograms starting age 40; encourage self breast examination; encourage regular exercise; encourage no tobacco use; mammogram performed within the past year; history of recent colonoscopy (Cologuard PCP) PAULINE Solis- [address], [place], [address], [facility] 04/03/2022 13:20:55 10/02/2022 text/html Lona is a 56yo G0 here for HRT. She has been getting it through an online place, but wants to get it here now. Doesn't notice a difference with testosterone and would like something different than the compounded estrogen cream she applies to her arm. Also takes prometrium 200 daily. no bleeding. No history of smoking, migraines, DVTs, strokes. last mammo 2019. Pam 2017. Symptoms are well controlled. Eula Ward MD [address], [place], [address], [facility] 10/02/2022 12:06:43 04/23/2023 text/html [employer]-MenopausalReport ed bypatient.Menopausal Symptoms:no menopausal symptoms; normal vaginal lubrication Vaginal Bleeding:history of menopause having occurred; no history of post menopausal bleeding Urinary Symptoms:no hematuria; no incontinence; no nocturia; no urinary frequency Vulva:no genital lesion; no vulvar atrophy Vagina:normal vaginal discharge; no vaginal atrophy Breast:no breast lump; no nipple discharge; no breast pain Sexual Complaints:no sexual complaints Psychological Symptoms:no depression; no anxiety Preventive Measures:encourage regular mammograms starting age 40; encourage self breast examination; encourage regular exercise; encourage no tobacco useNotes:postmenopaus al since age 51last pap 02/2021 - normalmammogram last ologuard UTD/PCP right axillary enlargement since 2019 - seen breast specialist, told fibrocystic breast changes. taking daily oral progesterone with topical compounded estrogen cream (rubs on wrist daily) for management of hot flashes/night sweats. Very happy with symptom control using this therapy - wants to continue.Denies hx of DVT/PE, HTN, NJ/Stroke, or breast cancershe is a non smoker PUALINE Crum [address], [place], [address], [facility] 04/24/2023 10:32:56 09/28/2023 text/html 57yopresents for f/u on hot flashescurrently on topical estradiol cream (compounded by [facility]) and oral progesterone daily for management of hot flashes.Feels like hot flashes and worsening/not controlled decreased libido postmenopausal since 2018 denies h/o DVT/PE, HTN, Liver disease, or BC PAULINE Crum [address], [place], [address], [facility] 10/02/2023 09:25:03 OBGyn Episode No OBEpisode recorded.
--- OUTSIDE RECORDS SUMMARY | 2024-11-04 00:49 | XMS_ITS | Clinical Summary ---
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/30/2010 Social History Tobacco Use Types Packs/Day Years Used Date Smoking Tobacco: Never Personal Safety Answer Date Recorded Getting School Help Needed Not on file 06/29 Comments Unknown Sex and Gender Information Value Date Recorded Sex Assigned at Not on file 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 Gender Identity Female 10/26/2020 8:08 AM CDT Sexual Orientation Straight 10/26/2020 8: 08 AM CDT Obstetrics History Last Filed Vital Signs Vital Sign Reading Time Taken Comments Blood Pressure 109/69 01/12/2021 8:03 AM CDT Pulse 56 01/12/2021 8:03 AM CDT Temperature 36.8 C (98.3 F) 01/12/2021 8:03 AM CDT Respiratory Rate - - Oxygen Saturation - - Inhaled Oxygen Concentration - - Weight 61.7 kg (136 lb) 01/12/2021 8:03 AM CDT Height 162.6 cm (5' 4) 01/12/2021 8:03 AM CDT Body Mass Index 23.34 01/12/2021 8:03 AM CDT Plan of Treatment Not on file Insurance [facility] HMO [facility] H[facility]/O Address: [facility] [id number] [place] [id number] Care Teams Dinkey Operator Slate Relationship Specialty Start Date End Date Mira Cortez NP PCP - General Family Medicine 10/20/20
--- OUTSIDE RECORDS SUMMARY | 2024-11-04 00:49 | XMS_ITS | Clinical Summary ---
Author Organization [facility] Address [address] [place] [address] Phone Care Team Providers Care Establishment Guide Name Role Phone Tim Cummins MD Primary Care Provider [phone] Allergies No known active allergies Medications BLACK COHOSH ORAL Take by mouth. Active MELATONIN ORAL Take by mouth. Active ibuprofen (MOTRIN) 200 mg tablet Take 200 mg by mouth every 6 hours as needed for Pain, Mild. Active Active Problems Patient Care Coordination No te Formatting of this note migh t be different from the original. Primary Care: No primary care provider on file. Referring Provider: No referring provider defined for this encounter. Other: Dr Penelope Mulligan MD No known active problems Family History Medical History Relation Name Comments Cancer Father Lung Cancer Father Cancer Mother Lung Cancer Mother Breast Cancer Neg Hx Ovarian Cancer Neg Hx Relation Name Status Comments Father Mother Social History Tobacco Use Types Packs/Day Years Used Date Smoking Tobacco: Never Smokeless Tobacco: Never Alcohol Use Standard Drinks/Week Comments Yes 0 (1 standard drink = 0.6 oz pur e alcohol) Comments No Sex and Gender Information Value Date Recorded Sex Assigned at Not on file Legal Sex Female 10:44 AM CDT Gender Identity Not on file Sexual Orientation Not on file Last Filed Vital Signs Vital Sign Reading Time Taken Comments Blood Pressure 103/64 12/24/2019 9:58 AM CDT Pulse 53 12/24/2019 9:58 AM CDT Temperature - - Respiratory Rate - - Oxygen Saturation - - Inhaled Oxygen Concentration - - Weight 62.1 kg (137 lb) 12/24/2019 9:58 AM CDT Height 165.1 cm (5' 5) 12/24/2019 9:58 AM CDT Body Mass Index 22.8 12/24/2019 9:58 AM CDT Plan of Treatment Health Maintenance Due Date Last Done Comments DTAP/TDAP/TD VACCINES (1 - Tdap) 10/07/1986 HEPATITIS B VACCINES (1 of 3 - 19+ 3-dose series) 10/07/1986 HPV/Cotest (21-29) 10/07/1988 CERVICAL CANCER SCREENING 10/07/1997 HPV/Cotest (30-65) 10/07/1997 PAP SMEAR 10/07/1997 COLORECTAL SCREENING 10/07/2012 Colorectal Cancer Screening 10/07/2012 FIT-DNA Q 3 years 10/07/2012 FIT/FOBT Q 1 year 10/07/2012 Flex Sig/CT Colonography Q 5 years 10/07/2012 ZOSTER VACCINE (1 of 2) 10/07/2017 BREAST CANCER SCREENING 12/14/2020 12/15/19 20, 08/09/2018, 12/18/2015 INFLUENZA VACCINE (#1) 2024 Procedures Procedure Name Priority Date/Time Associated Diagnosis Comments MAMMO 3D XIAO DIAGNOSTIC CATHERINE AT W OR WO CAD Routine 12/15/2019 from Last 3 Months or Most Recently Relevant to Health Maintenance Results * MAMMO DIAG BILAT 3D XIAO W OR WO CAD (12/15/2019) Anatomical Region Laterality Modality Breast Bilateral Mammography us Abstract Provider MAMMO ORDERABLES Edited Result - Final from Last 3 Months or Most Recently Relevant to Health Maintenance Insurance [employer] CHOICE POS II Care Teams Establishment Guide Relationship Specialty Start Date End Date Tim Cummins MD [address] [place] [id number] PCP - General Family Practice 12/24/19
--- OUTSIDE RECORDS SUMMARY | 2024-11-04 00:49 | XMS_ITS | Referral Summary ---
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
[2024-11-04 08:18] VITALS: BP 120/86; PULSE 67; RESP 19; O2SAT 100; BMI 22.4
[2024-11-04] MEDS: LACTATED RINGERS 1,000 ML 150 ML IV CONT (08:27)
--- NOTE | 2024-11-04 08:55 | P.PNAN_ITS ---
Anes - Initial Pre Proc Eval Procedure: Operation Date: 11/04/24 09:45 Proposed Procedures p Screening Colonoscopy - Franco Richmond DO Date/Time: 11/04/24 08:55 Surgeon: rFanco Richmond DO Pre Op Diagnosis: Neoplasm screening Patient Data Age: 59 Gender: F Height: 1.65 m Weight: 61 kg Last Vital Signs Pulse 67 11/04/24 08:18 Resp 19 11/04/24 08:18 BP 120/86 11/04/24 08:18 Pulse Ox 100 11/04/24 08:18 O2 Del Method Room Air 11/04/24 08:18 Allergies Allergy/AdvReac Type Severity Reaction Status Date / Time No Known Allergies Allergy Verified 11/04/24 08:16 Home Medications ?Medication ?Instructions ?Recorded ?Confirmed ?Type estradiol valerate 10 mg/mL 10 mg IM ONCE 12/27/21 11/04/24 History intramuscular oil omega 3 350 mg-dha 235 mg-epa 90 1 cap PO DAILY 12/27/21 11/04/24 History mg-fish oil 597 mg capsule,delay rel ([place]-3) progesterone micronized 100 mg 100 mg PO QAM 12/27/21 11/04/24 History capsule cholecalciferol (vitamin D3) 125 125 mcg PO DAILY 10/18/22 11/04/24 History mcg (5,000 unit) capsule magnesium oxide 500 mg capsule 500 mg PO DAILY 10/18/22 11/04/24 History prasterone (DHEA) 25 mg capsule 25 mg PO DAILY 10/18/22 11/04/24 History (DHEA) cyanocobalamin (vitamin B-12) 5,000 mcg PO DAILY 12/06/23 11/04/24 History 5,000 mcg capsule Patient hx anesthesia problems: none Family hx anesthesia problems: none Results Review: All pre-operative results and documents have been reviewed as part of the pre- operative evaluation. [facility] Past Medical History Medical History Vitamin B deficiency Screening for breast cancer Screening for lipid disorders Screening for thyroid disorder COVID-19 Other B-complex deficiencies Unspecified vitamin D deficiency Surgical History Surgical History H/O hemorrhoidectomy History of breast augmentation Family History Family History Father Carcinoma of colon Family history of lung cancer Bladder cancer Lung cancer Mother Family history of lung cancer Lung cancer Sibling Diabetes mellitus Bladder cancer Social History Social History Smoking status: Never smoker Second hand tobacco smoke exposure: Yes Alcohol intake: current Substance use: never Substance use type: does not use Lack of Transportation: No Lack of Food: Never True Current Housing: I Have Housing Concerned About Future Housing: No Difficulty Paying Gas/Electric Bills: No Difficulty Paying for Meds: No Currently Unemployed: No Education: Associate Degree Difficulty w/ Childcare or Family Care: No Living arrangements: with family Occupation/Education: occupation 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 Active without cp or sob. Informed Consent: The patient's anesthetic plan and its attendant risks and benefits were discussed with the patient/family/POA. Questions were solicited and answers provided to the satisfaction of the patient/family/POA.
--- NOTE | 2024-11-04 09:11 | PM.IMHP ---
H&P: HPI History of Present Illness Date/Time: 11/04/24 09:11 Chief Complaint: screening for colorectal cancer Narrative: this is a 59-year-old woman who presents for her 1st colonoscopy. She has previously done a Cologuard test which have all been negative. She denies any hematochezia or melena. She denies any family history of colon cancer. Review of Systems Review of Systems: All systems reviewed & are unremarkable except as noted in HPI and below Constitutional: Constitutional: Denies chills, Denies fever(s), Denies headache(s) and Denies weight loss Eyes: Eyes: Denies change in vision ENT: Denies dizziness, Denies headache(s), Denies neck mass and Denies throat swelling Cardiovascular: Cardiovascular: Denies chest pain, Denies lightheadedness and Denies dyspnea Respiratory: Respiratory: Denies cough, Denies dyspnea and Denies wheezing Gastrointestinal: Gastrointestinal: Denies abdominal pain, Denies change in bowel habits, Denies nausea and Denies vomiting Genitourinary: Genitourinary: Denies hematuria and Denies dysuria Musculoskeletal: Musculoskeletal: Reports as per HPI Integumentary/Breasts: Skin/Breast: Reports as per HPI Neurologic: Denies dizziness and Denies headache(s) Allergic/Immunologic: Allergic/Immunologic: Denies throat swelling and Denies wheezing PMFSH Past Medical History Medical History Vitamin B deficiency Screening for breast cancer Screening for lipid disorders Screening for thyroid disorder COVID-19 Other B-complex deficiencies Unspecified vitamin D deficiency Surgical History Surgical History H/O hemorrhoidectomy History of breast augmentation Family History Family History Father Carcinoma of colon Family history of lung cancer Bladder cancer Lung cancer Mother Family history of lung cancer Lung cancer Sibling Diabetes mellitus Bladder cancer Social History Social History Smoking status: Never smoker Second hand tobacco smoke exposure: Yes Alcohol intake: current Substance use: never Substance use type: does not use Lack of Transportation: No Lack of Food: Never True Current Housing: I Have Housing Concerned About Future Housing: No Difficulty Paying Gas/Electric Bills: No Difficulty Paying for Meds: No Currently Unemployed: No Education: Associate Degree Difficulty w/ Childcare or Family Care: No Living arrangements: with family Occupation/Education: occupation 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 Gender identity (if verbalized by the patient): Female Meds Home Medications and Allergies Home Medications ?Medication ?Instructions ?Recorded ?Confirmed ?Type estradiol valerate 10 mg/mL 10 mg IM ONCE 12/27/21 11/04/24 History intramuscular oil omega 3 350 mg-dha 235 mg-epa 90 1 cap PO DAILY 12/27/21 11/04/24 History mg-fish oil 597 mg capsule,delay rel ([place]-3) progesterone micronized 100 mg 100 mg PO QAM 12/27/21 11/04/24 History capsule cholecalciferol (vitamin D3) 125 125 mcg PO DAILY 10/18/22 11/04/24 History mcg (5,000 unit) capsule magnesium oxide 500 mg capsule 500 mg PO DAILY 10/18/22 11/04/24 History prasterone (DHEA) 25 mg capsule 25 mg PO DAILY 10/18/22 11/04/24 History (DHEA) cyanocobalamin (vitamin B-12) 5,000 mcg PO DAILY 12/06/23 11/04/24 History 5,000 mcg capsule Allergies Allergy/AdvReac Type Severity Reaction Status Date / Time No Known Allergies Allergy Verified 11/04/24 08:16 Vital Signs Vital Signs - 24 hr 11/04/24 08:18 Pulse Rate 67 Respiratory Rate 19 Blood Pressure 120/86 Pulse Oximetry 100 Oxygen Delivery Room Air Exam Const: General: no acute distress and alert Orientation/consciousness: patient oriented x3 HENMT: Head: normocephalic and atraumatic Ears: hearing grossly normal bilaterally Face/Nose/Sinus: Normal nares present Mouth: Yes Normal oral and palatal mucosa present Eyes: Periorbital: periorbital findings normal Sclera: sclerae normal EOM: EOMs intact bilaterally Neck: Neck: normal visual inspection, no lymphadenopathy and trachea midline Chest: Chest palpation & inspection: normal inspection of the chest Resp: Effort & Inspection: normal respiratory effort Auscultation: clear to auscultation bilaterally Cardio: Jugular venous distension: no JVD Rate: regular rate Rhythm: regular rhythm Heart sounds: S1 normal heart sound present and S2 normal heart sound present Peripheral pulses: Peripheral pulses 2+ throughout GI: Inspection: normal to inspection GI Palp: Yes Soft to palpation, No Tenderness to palpation present (GI), No Guarding due to palpation present (GI) and No Rebound tenderness present Percussion: Yes normal to percussion Auscultation: normal bowel sounds : General: Yes no CVA tenderness Back/Spine/Pelvis: Back: no CVA tenderness Neuro: General: patient oriented x3, no focal motor deficits and CN's II-XI intact bilaterally Cognition (Neuro): normal cognition Speech: normal speech Motor exam (neuro): 5/5 motor strength present throughout Extrem: General: capillary refill normal and no clubbing, cyanosis or edema Assessment and Plan Assessment and plan (1) Screen for colon cancer: Code(s): Z12.11 - Encounter for screening for malignant neoplasm of colon Status: Acute Assessment and Plan: I have recommended colonoscopy. I have discussed the procedure, risks, benefits, and alternatives. Questions were answered. Patient is agreeable to proceed.
[2024-11-04 09:35] VITALS: BP 91/60; PULSE 62; RESP 18; O2SAT 99
[2024-11-04 09:45] VITALS: BP 96/61; PULSE 62; RESP 20; O2SAT 98
[2024-11-04 09:55] VITALS: BP 105/71; PULSE 60; RESP 18; O2SAT 98
== END 2024-11-04 09:58 | disposition home or self-care (01) ==
PROVIDERS: PCP Family Medicine; Visit Provider Surgery
PROC: 0DJD8ZZ Inspection of Lower Intestinal Tract, Via Natural or Artificial Opening Endoscopic (ICD-10-PCS; CPT 45378; principal; 2024-11-04 09:45)
DX: Z12.11 Encounter for screening for malignant neoplasm of colon (principal); K57.30 Diverticulosis of large intestine without perforation or abscess without bleeding; E53.8 Deficiency of other specified B group vitamins; E55.9 Vitamin D deficiency, unspecified; Z98.890 Other specified postprocedural states; Z80.0 Family history of malignant neoplasm of digestive organs; Z80.1 Family history of malignant neoplasm of trachea, bronchus and lung; Z80.52 Family history of malignant neoplasm of bladder
CPT/HCPCS: 45378; J2704; J7120

== ENCOUNTER 2024-12-03 08:50 | Outpatient (CLI) | payer OTHER, SELFPAY ==
--- NOTE | ~2024-12-03 | DEXA_ITS ---
Bone Density Report Name: MARY BRAMBILA Age: 59 Sex: Female Ethnicity: White Date of : 1965 Indication: osteopenia; height loss; Referring Provider: CAMERON GUAN Study: Bone densitometry was performed. Exam Date: December 03, 2024 Accession number: [id number] Bone Density: Region BMD T-score Z-score Classification AP Spine(L1-L4) 0.853 -1.8 -0.5 Osteopenia Femoral Neck (Left) 0.636 -1.9 -0.8 Osteopenia Total Hip (Left) 0.723 -1.8 -1.0 Osteopenia Femoral Neck (Right) 0.616 -2.1 -0.9 Osteopenia Total Hip (Right) 0.727 -1.8 -1.0 Osteopenia Total Hip Mean 0.725 -1.8 -1.0 Osteopenia World Health Organization criteria for BMD impression classify patients as: Normal (T-score at or above -1.0), Osteopenia (T-score between -1.0 and -2.5), or Osteoporosis (T-score at or below -2.5). 10-year Fracture Risk(1): Major Osteoporotic Fracture 8.1% Hip Fracture 1.1% Reported Risk Factors: [place] (), Neck BMD=0.616, BMI=22.3 (1) FRAX(R) Version 3.08. Fracture probability calculated for an untreated patient. Fracture probability may be lower if the patient has received treatment. Previous Exams: -- Region Exam Age BMD T-score BMD Change BMD Change Date g/cm2 vs Baseline vs Previous -- Total Hip(Right) 12/03/2024 59 0.727 -1.8 10.6%# 10.6%# 12/03/2024 59 0.657 -2.3 -- *Denotes significance at 95% confidence level, LSC for Total Hip = 0.027 g/cm2 # Denotes dissimilar scan types or analysis methods Clinical Information Provided by Patient: Has used the following medications: HRT (i.e. estrogen/hormone therapy), Vitamin D Patient maximum height was 67 Menopause Age: 52 Drinks caffeinated beverages Onset of menses at age 13 Number of children 0 Impression: The patient has low bone mass, based on the Right Femoral Neck T-score. The patient has an estimated ten-year risk of hip fracture of 1.1% and an estimated ten-year risk of major fracture of 8.1%, based on the WHO FRAX algorithm. Unable to evaluate interval change due to the use of different scan modes. Discussion: BONE DENSITY IS LOW AT ONE OR MORE SKELETAL SITES. This patient's lowest T-score is low at one or more skeletal sites. It meets the World Health Organization's (WHO) criteria for ?low bone mass? (T-score between -1.0 and -2.5). The patient's 10-year risk of fracture as calculated by FRAX is less than the threshold where pharmacological therapy is recommended by the National Osteoporosis Foundation (NOF). However, all treatment decisions require clinical judgment and consideration of individual patient factors, including patient preferences, comorbidities, previous drug use, risk factors not captured in the FRAX model (e.g., frailty, falls, vitamin D deficiency, increased bone turnover, interval significant decline in bone density) and possible under or overestimation of fracture risk by FRAX. The patient should follow a healthful lifestyle (good nutrition with adequate calcium and vitamin D, and appropriate weight-bearing exercise). Follow-Up: Consider repeating this study in 2 to 3 years to reassess this patient's status, or sooner if there is some new clinical indication. Reported by: VENECIA on 12/03/2024 9:25:00 AM. Reviewed, dictated and finalized at location A.
== END 2024-12-03 08:51 | disposition home or self-care (01) ==
LOC: MICIMG 08:51
PROVIDERS: PCP Family Medicine
DX: M85.89 Other specified disorders of bone density and structure, multiple sites (principal); Z13.820 Encounter for screening for osteoporosis
CPT/HCPCS: 77080

== ENCOUNTER 2025-03-19 07:53 | Outpatient (CLI) | payer OTHER, SELFPAY ==
--- NOTE | ~2025-03-19 | MM_ITS ---
EXAMINATION: MM diagnostic mammogram implant BI w nani HISTORY: Palpable abnormality on the right TECHNIQUE: Craniocaudal and mediolateral oblique 3-D tomosynthesis images were obtained and synthetic 2-D images were generated. CAD analysis was submitted and interpreted. COMPARISON: 2022, 2019, and 2018 BREAST PARENCHYMAL COMPOSITION: Not Dense: There are scattered areas of fibroglandular FINDINGS: There is/are prepectoral saline implants. The presence of implants decreases the sensitivity of mammography. No suspicious masses are seen. There are no suspicious calcifications. No unexplained architectural distortion is seen. There are no skin or nipple abnormalities identified. There is no adenopathy seen on the images submitted. IMPRESSION: No mammographic evidence to suggest malignancy is seen. Negative or inconclusive breast imaging studies should not deter biopsy if there are clinically suspicious palpable abnormalities. The patient may return to screening mammography as per ACR guidelines. BI-RADS 1 - Negative. Reviewed, dictated and finalized at location B. TIVE PRODUCER IMPRESSION: No mammographic evidence to suggest malignancy is seen. Negative or inconclusiv e breast imaging studies should not deter biopsy if there are clinically suspic ious palpable abnormalities. The patient may return to screening mammography as per ACR guidelines. BI-RADS 1 - Negative.
--- NOTE | ~2025-03-19 | US_ITS ---
PROCEDURE(S): US breast right limited INDICATION(S): Right BREAST PALPABLE ABNORMALITY COMPARISON(S): Mammogram from same day TECHNIQUE: Grayscale and color Doppler imaging. FINDINGS: No cystic or solid masses are seen in the area(s) of concern. Portions of the implant are seen. IMPRESSION: No significant abnormality is seen sonographically. Negative or inconclusive breast imaging studies should not deter biopsy if there are clinically suspicious palpable abnormalities. BI-RADS 1 - Negative. Reviewed, dictated and finalized at location B. LLIGENCE DIRECTOR IMPRESSION: No significant abnormality is seen sonographically. Negative or inconclusive br east imaging studies should not deter biopsy if there are clinically suspicious palpable abnormalities. BI-RADS 1 - Negative.
== END 2025-03-19 07:54 | disposition home or self-care (01) ==
LOC: MICIMG 07:53
PROVIDERS: PCP Family Medicine; Visit Provider Nurse Practitioner
DX: N63.10 Unspecified lump in the right breast, unspecified quadrant (principal); R92.8 Other abnormal and inconclusive findings on diagnostic imaging of breast
CPT/HCPCS: 76642; 77062; 77066; G0279